=== PATIENT | female | born 1960 | race African-American/Black ===

== ENCOUNTER 2023-06-13 17:32 | Emergency (ER) | payer SELFPAY ==
--- OUTSIDE RECORDS SUMMARY | 2023-06-13 17:38 | XMS REPORT | Continuity of Care Document ---
:1960 Author Organization [facility] t Address [address] [place] [address] Care Team Providers Name Role Phone PCP, PATIENT DOES NOT HAVE A Primary Care Physician Unavaila ble CATRACHITA FERGUSON Attending Clinician Unavailable Catrachita Ferguson MD Attending Clinician MIGUEL BABIN Attending Clinician Unavailable STELLA PEDRAZA Attending Clinician Unavailable Stella Pedraza DO Attending Clinician CRISELDA KHAN Attending Clinician Unavailable MIGUEL A SIMPSON Attending Clinician Unavailable JC BRANDON Attending Clinician Unavailable SATHISH ARGUELLES Attending Clinician Unavailable NICHOLE GONCALVES Attending Clinician Unavailable COCO SHERMAN Attending Clinician Unavailable MAGALY AGUIAR Attending Clinician Unavailable AMADA SALDAÑA Attending Clinician Unavailable JAIMEE VALERO Attending Clinician Unavailable CONCEPCIÓN MARINO Attending Clinician Unavailable CARLITA BARBOSA Attending Clinician Unavailable Jinny Lund Attending Clinician MATI DE LEON Attending Clinician Unavailable Yang Henderson Attending Clinician Unavailable CATRACHITA FERGUSON Admitting Clinician Unavailable STELLA PEDRAZA Admitting Clinician Unavailable Physician, No Primary or Family Admitting Clinician Unavaila benjamin Payers Payer Name Policy Type Policy Number Effective Date Expiration Date Penelope bowens [facility] [id number] [id number] 2022 ASSISTANCE PROGRAM 00:00:00 00:00:00 [facility] SELECT OUT [id number] 2022 OF NETWORK 00:00:00 FORMERLY [facility] [id number] 2022 2078 CHOICE MARK[employer] 00:00:00 00:00:00 CHANTE GEORGE [id number] 1555-04-25 2022 PLANNING SELF 00:00:00 00:00:00 Problems Condition Condition Condition Status Onset Resolution Last Treating Co mments Source Name Details Category Date Date Treatment Clinician Date CP CP Active Diagnosis Active 2021-10-26 Memoria 10/19/202110-19 07:38:00 l MH 15:00: Roberto [facility] 00 History of Past Illness Condition Condition Condition Status Onset Resolution Last Treating Co mments Source Name Details Category Date Date Treatment Clinician Date Palpitatio Palpitati Problem 2021-10-27 2021-10-27 Memoria ns ons 10-25 23:25:50 23:25:50 l 10/25/2021 21:25: Buster n 10/27/2021 00 [facility] Anxiety Anxiety Problem 2021-10-27 2021-10-27 Memoria disorder, disorder, 10-25 23:25:50 23:25:50 l unspecifie unspecifie 21:25: He rmann d d 00 10/25/2021 10/27/2021 [facility] Allergies, Adverse Reactions, Alerts Allergy Allergy Status Severity Reaction(s) Onset Inactive Treating Comm ents Source Name Type Date Date Clinician PENICILL DRUG Active Swelling Univer s IN INGREDI 11-23 ity of 00:00: [place] 00 Medical Branch Penicill Propensi Active Swelling Univ ers in ty to 11-23 ity of adverse 00:00: [place] reaction 00 Medical s Branch No Known DA Active U [facility] Allergie 10-20 [place] s 00:00: [facility] 00 are [facility] NO KNOWN Drug Active Univers ALLERGIE Class ity of S [facility] penicill penicill Active Memori a in in l Roberto Social History Social Habit Start Date Stop Date Quantity Comments Source Sexual orientation Univer sity of [facility] Exposure to 2023-01-10 2023-01-20 Not sure [facility] SARS-CoV-2 (event) 00:00:00 17:27:00 Medica l Branch Sex Assigned At [address] [facility] 00:00:00 [facility]00 [facility] Smoking Status Start Date Stop Date Source Tobacco smoking consumption [facility] Medical [facility] Branch Medications Ordered Filled Start Stop Current Ordering Indication Dosage Frequency Signature Comments Components Source Medication Medication Date Date Medication? Clinician (SIG) Name Name NaCl 0.9% 1000mL at 999 Uni vers (NS) bolus 4-02 04-02 mL/hr, ity of infusion 04:15: 04:40 1,000 mL, Shine as 1,000 mL 00 :00 IV Medical Infusion, Branch ONCE, 1 dose, On 11/23/22 at 2315, LISA Omnipaque No Notes: Memori a 350 3-03 (Same l injectable 20:38: as:Omnipaq H ermann solution 00 ue 350) WASTE: F/P - Black; E - Municipal Trash Bin Saline No Notes: Memoria Flush 0.9% -03 (Same as: l 19:03: BD Roberto 00 Posiflush) Immunizations Ordered Immunization Filled Immunization Date Status Commen ts Source Name Name Covid-19 Vaccine MRNA Unknown Completed [facility] (PF) 12[facility] (Pfizer/BioNTech)(IMM 601) Covid-19 Vaccine MRNA Unknown Completed [facility] (PF) 12yr+ [facility] (Pfizer/BioNTech)(IMM 601) Vital Signs Vital Name Observation Time Observation Value Comments Source Systolic blood 2023-05-20 01:51:18 143 mm[Hg] Univer sity of pressure [facility] Diastolic blood 2023-05-20 01:51:18 64 mm[Hg] Unive [facility] Heart rate 2023-05-20 01:51:18 58 /min [facility] Respiratory rate 2023-05-20 01:51:18 19 /min [facility] Oxygen saturation in 2023-05-20 01:51:18 99 /min [facility] Arterial blood by [facility] Pulse oximetry Branch Body temperature 2023-05-19 23:25:00 36.78 Letitia [facility] [place] [facility] Body height 2023-05-19 23:25:00 162.6 cm [facility] [place] [facility] Body weight 2023-05-19 23:25:00 70.761 kg [facility] [place] [facility] BMI 2023-05-19 23:25:00 26.78 kg/m2 [facility] [place] [facility] Systolic blood 2023-01-20 22:29:00 130 mm[Hg] [facility] [place] [facility] Diastolic blood 2023-01-20 22:29:00 77 mm[Hg] Unive [facility] [place] [facility] Heart rate 2023-01-20 22:29:00 69 /min [facility] [place] [facility] Body temperature 2023-01-20 22:29:00 37.5 Letitia [facility] [place] [facility] Respiratory rate 2023-01-20 22:29:00 16 /min [facility] [place] [facility] Body height 2023-01-20 22:29:00 162.6 cm [facility] [place] [facility] Body weight 2023-01-20 22:29:00 73.029 kg [facility] [place] [facility] BMI 2023-01-20 22:29:00 27.64 kg/m2 Universi ty of [facility] Branch Oxygen saturation in 2023-01-20 22:29:00 99 /min University of Arterial blood by [facility] Pulse oximetry Branch Systolic blood 2022-11-24 04:00:00 138 mm[Hg] [facility] [place] [facility] Diastolic blood 2022-11-24 04:00:00 74 mm[Hg] Unive [facility] [place] [facility] Respiratory rate 2022-11-24 04:00:00 9 /min [facility] [place] [facility] Heart rate 2022-11-24 03:09:00 71 /min [facility] [place] [facility] Body temperature 2022-11-24 03:09:00 37.11 Letitia [facility] [place] [facility] Body height 2022-11-24 03:09:00 162.6 cm [facility] [place] [facility] Body weight 2022-11-24 03:09:00 72.576 kg [facility] [place] [facility] BMI 2022-11-24 03:09:00 27.46 [facility] in 2022-11-24 03:09:00 100 /min University Arterial blood by [facility] Pulse oximetry Branch Temperature Oral (F) 2021-10-25 21:53:00 98.2 F [facility] Respitory Rate 2021-10-25 21:53:00 Memori al Roberto Systolic (mm Hg) 2021-10-25 21:53:00 Aron rial Roberto Diastolic (mm Hg) 2021-10-25 21:53:00 Mem orial Roberto BMI Calculated 2021-10-25 21:30:00 Memori al Roberto Respitory Rate 2021-10-25 19:30:00 [facility] [place] Systolic (mm Hg) 2021-10-25 19:30:00 [facility]ron [facility] [place] Diastolic (mm Hg) 2021-10-25 19:30:00 Mem orial Roberto Respitory Rate 2021-10-25 19:00:00 [facility] [place] Systolic (mm Hg) 2021-10-25 19:00:00 Aron rial Roberto Diastolic (mm Hg) 2021-10-25 19:00:00 [facility] [place] Height 2021-10-25 18:29:00 162.56 cm [facility] [place] [facility] BMI Calculated 2021-10-25 18:29:00 [facility] [place] Weight 2021-10-25 18:29:00 [facility] [place] [facility] Heart Rate 2021-10-25 18:29:00 [facility] Oral (F) 2021-10-25 18:29:00 98.3 F [facility] [place] [facility] Procedures Procedure Date / Time Performing Clinician Source Performed XR CHEST 1 VW 2023-05-20 00:35:27 Catrachita Ferguson Pompey o f [facility] CONSENT/REFUSAL FOR 2023-05-19 23:17:29 Doctor Unassigned, No [facility] [place] [facility] Name [facility] Branch CONSENT/REFUSAL FOR 2023-01-20 22:18:32 Doctor Unassigned, No [facility] [place] [facility] Name [facility] EKG-12 LEAD 2022-11-24 04:43:27 Stella Pedraza [facility] XR CHEST 1 VW 2022-11-24 03:47:31 Stella Pedraza [facility] MAGNESIUM 2022-11-24 03:30:00 Stella Pedraza [facility] TROPONIN I 2022-11-24 03:30:00 Stella Pedraza [facility] THYROID STIMULATING 2022-11-24 03:30:00 Stella Pedraza [facility] HORMONE [facility] COMP. METABOLIC PANEL 2022-11-24 03:30:00 Stella Pedraza [facility] ([id number]) [facility] CBC WITH DIFF 2022-11-24 03:30:00 Stella Pedraza [facility] NOTICE OF PRIVACY 2022-11-24 02:59:10 Doctor Unassigned, No [facility] PRACTICES Name [facility] CONSENT/REFUSAL FOR 2022-11-24 02:58:42 Doctor Unassigned, No [facility] Name [facility] Plan of Care Planned Activity Planned Date Details Comments Source Future Scheduled 2023-04-25 Influenza Vaccine (#1) [facility] 00:[facility]00 [code = Influenza Vaccine De dical Center (#1)] Future Scheduled 2022-08-[address] [facility] Test 00:00:00 (12+) [code = DEPRESSION Med [facility] Center SCREENING (12+)] Future Scheduled 2021-02-05 COVID-19 VACCINE (3 - [facility] 00:[facility]:00 Booster for Pfizer Medical C enter series) [code = COVID-19 VACCINE (3 - Booster for Pfizer series)] Future Scheduled 2010 SHINGLES VACCINES ([address] [facility] Test 00:00:00 2) [code = SHINGLES Medical Center VACCINES (1 of 2)] Future Scheduled 2005 Lipid panel (procedure) [facility] Test 00:00:00 [code = 96912011] Medical Ce nter Future Scheduled 1981 Screening for malignant [facility] Test 00:00:00 neoplasm of cervix Medical C enter (procedure) [code = 090567553] Future Scheduled 1979 DTAP/TDAP/TD VACCINES ([address] [facility] Test 00:00:00 - Tdap) [code = Medical Cent er DTAP/TDAP/TD VACCINES (1 - Tdap)] Future Scheduled 1978 HEPATITIS C SCREENING [facility] 00:00:00 [code = HEPATITIS C Medical Center SCREENING] Future Scheduled [address] [facility] Test 00:00:00 virus screening Medical Cent er (procedure) [code = 334193139] Future Scheduled [address] [facility] Test 00:00:00 Counseling and Screening [facility] (12+) [code = Tobacco Cessation Counseling and Screening (12+)] Future Scheduled 1960 Screening for malignant [facility] Test 00:00:00 neoplasm of breast Medical C enter (procedure) [code = 470181250] Future Scheduled 1960 CT Colonography (combo) [facility] Test 00:00:00 [code = CT Colonography [facility] (combo)] Future Scheduled 1960 Screening for malignant [facility] Test 00:00:00 neoplasm of colon Medical Ce nter (procedure) [code = 640035438] Future Scheduled 1960 Screening for malignant [facility] Test 00:00:00 neoplasm of colon Medical Ce nter (procedure) [code = 283179864] Future Scheduled 1960 Screening for malignant [facility] Test 00:00:00 neoplasm of colon Medical Ce nter (procedure) [code = 167442747] Future Scheduled 1960 Screening for malignant [facility] Test 00:00:00 neoplasm of colon Medical Ce nter (procedure) [code = 838714546] Future Scheduled 1960 Sigmoidoscopy [code = [facility] 00:[facility] Sigmoidoscopy] Medical Cente r Encounters Start End Encounter Admission Attending Care Care Encounter Source Date/Time Date/Time Type Type Clinicians Facility Department ID 2022-10-11 Outpatient [facility] [id number] [place] 20:59:03 [id number] [facility] 2022-02-13 Outpatient [facility] [id number] 06:03:54 [id number] [facility] 2023-05-19 2023-05-19 Emergency X JEROME, [facility] ERT [id number] Univers 18:27:00 20:54:00 CATRACHITA lo [facility] 2023-05-19 2023-05-19 Emergency [facility] [id number] Univers 18:27:00 20:54:00 Catrachita DAI [id number] i ty [facility] [id number] [facility] [id number] [address] 2023-01-29 2023-01-29 Outpatient OLAF, [facility] [id number] [place] 00:00:00 00:00:00 [facility] 2023-01-29 2023-01-29 Outpatient OLAF, [facility] [id number] [place] 00:00:00 00:00:00 [facility] 2023-01-20 2023-01-20 Emergency [facility] [id number] Univers 17:31:00 18:06:00 STELLA lo [facility] 2023-01-20 2023-01-20 Emergency [facility] [id number] Univers 17:31:00 18:06:00 Stella DAI [id number] ity [facility] [id number] [facility] [id number] [address] 2022-11-23 2022-11-23 Emergency X [facility] ERT [id number] Univers 22:02:00 23:48:00 STELLA leelizabet [facility] 2022-11-23 2022-11-23 Emergency [facility] [id number] Univers 22:02:00 23:48:00 Stella DAI [id number] ity [facility] [id number] [facility] [id number] [address] 2022-11-18 2022-11-18 Outpatient EKERUO, [facility] [id number] [place] 00:00:00 00:00:00 CRISELDA [employer] 2022-11-05 2022-11-05 Outpatient EKERUO, [facility] [id number] [place] 11:41:40 23:59:00 [facility] 2022-10-21 2022-10-21 Outpatient [facility] [id number] [place] 00:00:00 00:00:00 [facility] 2022-09-23 2022-09-23 Outpatient ERIN, [facility] [id number] [place] 14:25:07 15:59:20 [facility]22-09-19 2022-09-19 Outpatient SIMPSON, [facility] [id number] [place] 14:31:33 15:24:14 [facility] 2022-09-17 2022-09-17 [facility] [id number] [place] 00:00:00 00:00:00 [facility] 2022-08-20 2022-08-21 Emergency [facility] [id number] [place] 20:10:00 00:50:00 [facility] 2022-07-31 2022-07-31 Outpatient [facility] [id number] [place] 12:37:21 23:59:00 , [facility] 2022-07-31 2022-07-31 Outpatient [facility] [id number] [place] 12:37:07 23:59:00 , [facility] 2022-07-30 2022-07-30 [facility] [id number] [place] 10:22:52 10:28:12 [facility] 2022-07-30 2022-07-[address], [facility] [id number] [place] 00:00:00 00:00:00 [facility] 2022-07-23 2022-07-23 Outpatient OGADRIANA, [facility] [id number] [place] 10:06:25 10:13:04 [facility] 2022-07-23 2022-07-23 [facility] [id number] [place] 00:00:00 00:00:00 [facility] 2022-07-15 2022-07-15 Outpatient ROMA, [facility] [id number] [place] 08:35:11 09:10:54 [facility] 2022-07-15 2022-07-15 Outpatient [facility] [id number] [place] 00:00:00 00:00:00 [facility] 2022-07-01 2022-07-01 Outpatient MAGALY AGUIAR [facility] [id number] [place] 08:23:05 08:59:00 [facility] 2022-05-20 2022-05-20 [id number] [place] 10:22:59 11:09:15 , [facility] 2022-05-06 2022-05-06 Outpatient MAGALY AGUIAR [facility] [id number] [place] 08:29:38 09:12:50 [facility] 2022-04-30 2022-05-01 Emergency [facility] [id number] [place] 21:10:00 01:27:00 [facility] 2022-04-24 2022-04-24 [facility] [id number] [place] 08:13:24 23:59:00 , [facility] 2022-03-25 2022-03-25 [facility] [id number] [place] 10:02:02 10:41:30 , [facility] 2022-03-05 2022-03-05 Outpatient MAGALY AGUIAR [facility] [id number] [place] 08:34:29 08:53:15 [facility] 2022-02-26 2022-02-26 Outpatient MAGALY AGUIAR [facility] [id number] [place] 00:00:00 00:00:00 [facility] 2022-01-28 2022-01-28 [facility] [id number] [place] 13:49:44 14:22:57 , [facility] 2022-01-28 2022-01-28 [facility] [id number] [place] 00:00:00 00:00:00 , [facility] 2022-01-24 2022-01-24 [facility] [id number] [place] 13:39:58 23:59:00 , [facility] 2022-01-24 2022-01-24 [facility] [id number] [place] 13:37:11 13:38:00 , [facility] 2022-01-24 2022-01-24 [facility] [id number] [place] 13:35:33 13:36:00 , [facility] 2022-01-22 2022-01-22 [facility] [id number] [place] 09:23:42 23:59:00 , [facility] 2022-01-22 2022-01-22 Outpatient NHONTCHIT [facility] [id number] [place] 00:00:00 00:00:00 [facility]22-[facility] 2022-01-09 [facility] [id number] [place] 00:00:00 00:00:00 , [facility] 2021-12-27 2021-12-27 [facility] [id number] [place] 14:00:05 23:59:00 , [facility] 2021-12-27 2021-12-27 Outpatient OMARJuliana MAGALY [facility] [id number] [place] 08:34:25 09:13:49 [facility] 2021-11-27 2021-11-27 [facility] [id number] [place] 14:58:56 15:31:13 , [facility] 2021-11-22 2021-11-22 Outpatient [facility] [id number] [place] 09:24:52 09:26:31 [facility] 2021-11-20 2021-11-20 Emergency [facility] [id number] [place] 17:59:00 22:30:00 [facility] 2021-11-19 2021-11-20 Emergency [facility] [id number] [place] 22:54:00 11:32:00 [facility] 2021-11-19 2021-11-19 Emergency [facility] [id number] [place] 13:51:00 15:30:00 [facility] 2021-11-19 2021-11-19 Emergency [facility] [id number] [place] 12:24:25 12:28:11 [facility] 2021-11-16 2021-11-16 [facility] [id number] [place] 14:56:05 15:38:20 , [facility] 2021-11-16 2021-11-16 [facility] [id number] [place] 14:34:43 14:47:12 , [facility] 2021-11-16 2021-11-16 [facility] [id number] [place] 13:54:45 14:28:17 , [facility] 2021-11-16 2021-11-16 Outpatient NHONTHACHIT [facility] [id number] [place] 00:00:00 00:00:00 , [facility] 2021-11-08 2021-11-08 Emergency [facility] [id number] [place] 08:18:00 17:13:00 [facility] 2021-11-08 2021-11-08 Emergency [facility] [id number] [place] 08:27:00 08:27:00 [facility] 2021-11-08 2021-11-08 Emergency 1 [facility] [id number] [place] 08:18:00 08:18:00 [facility] 2021-10-27 2021-10-27 Outpatient CHELSEY, [facility] [id number] [place] 16:47:16 19:24:32 [facility] 2021-10-27 2021-10-27 Emergency [facility] [id number] [place] 13:25:00 14:00:00 [facility] 2021-10-25 2021-10-25 Emergency [facility] [id number] Memoria 18:28:27 21:57:00 [facility] 2021-10-25 2021-10-25 Outpatient Lund, [place] [id number] 12:28:27 15:57:00 Jinny Ryan Campos Dhaliwal 2021-10-20 2021-10-20 Emergency [facility] [id number] [place] 17:55:00 21:18:00 [facility] 2021-10-20 2021-10-20 Emergency [facility] [id number] [place] 19:20:00 19:42:50 [facility] 2021-10-20 2021-10-20 Emergency EM Beatriz, RADHA [facility] [id number] [facility] 01:13:00 05:47:00 Yang Schumacher [facility] 2020-12-11 2020-12-11 Outpatient [facility] [id number] [facility] 00:00:00 00:00:00 2020-11-20 2020-11-20 Outpatient [facility] [id number] [facility] 00:00:00 00:00:00 Results Test Description Test Time Test Comments Results Result Comments Source THYROID STIMULATING HORMONE 2022-11-24 04:38:41 Test Item Value Reference Range Interpretation Comme nts TSH (test code = 9462370381) 1.19 See_Comment [Automated message] The system which generated this result transmitted ref erence range: 0.45 - 4.70 mIU/L. T he reference range was not used to interpret this result as pamela l/abnormal. Lab Interpretation (test code = Normal 04016-4) [id number]:20[facility]01 Test Item Value Reference Range Interpretation Comments TROPONIN I (test code = 0.000 ng/mL <=0.034 0788417434) SYLVIA (test code = SYLVIA) Reference (Normal) Range (defined by the 99th percentile reference limit): <= 0.034 ng/mL Note: Cardiac troponin begins to rise 3-4 hours after the onset of ischemia. Repeat in 4-6 hours if the sample was drawn within 3-4 hours of the onset of the symptom and found normal. Diagnosis of myocardial injury is made with acute changes in cTn concentrations with at least one serial sample above the 99th percentile upper reference limit (URL), taken together with the patient's clinical presentation. Biotin has been reported to cause a negative bias, interpret results relative to patient's use of biotin. Lab Interpretation Normal (test code = 64002-4) [facility] 04:08:19 Test Item Value Reference Range Interpretation Comments MAGNESIUM (test code = 2934780757) 2.1 mg/dL 1.7-2.4 Lab Interpretation (test code = Normal 34316-7) [facility] (25319)2022-11-24 04:08:18 Test Item Value Reference Range Interpretation Comments NA (test code = 138 mmol/L 135-145 9636601629) K (test code = 4.5 mmol/L 3.5-5.0 0347862812) CL (test code = 105 mmol/L 98-108 1886095928) CO2 TOTAL (test code 24 mmol/L 23-31 = 8579882670) AGAP (test code = 9 2-16 5866187969) BUN (test code = 13 mg/dL 7-23 5736023369) GLUCOSE (test code = 101 mg/dL 70-110 8834283211) CREATININE (test code 0.69 mg/dL 0.50-1.04 = 9712867424) TOTAL BILI (test code 0.6 mg/dL 0.1-1.1 = 4852539924) CALCIUM (test code = 9.6 mg/dL 8.6-10.6 8408133515) T PROTEIN (test code 7.4 g/dL 6.3-8.2 = 1586035417) ALBUMIN (test code = 4.1 g/dL 3.5-5.0 2590367752) ALK PHOS (test code = 69 U/L 34-122 5153566123) ALTv (test code = 15 U/L 5-35 2-6) AST(SGOT) (test code 24 U/L 13-40 = 9682512445) eGFR (test code = 86.2 mL/min/1.73m2 3419317152) SYLVIA (test code = SYLVIA) Association of Glomerular Filtration Rate (GFR) and Staging of Kidney Disease* + + +- +| GFR (mL/min/1.73 m2) ?| With Kidney Damage ?| ?Without Kidney Damage+ ------+ ----+ ------+| ?>90 ?| ?Stage one ?| ? Normal ?+ -+ + -+| ?60-89 ?| ?Stage two ?| ? Decreased GFR ? + + +- +| ?30-59 ?| ?Stage three ?| ? Stage three ? + + +- +| ?15-29 ?| ?Stage four ? | ? Stage four ?+ -+ + -+| ?<15 (or dialysis) ? ?| ?Stage five ? | ? Stage five ?+ -+ + -+ *Each stage assumes the associated GFR level has been in effect for at least three months. ?Stages 1 to 5, with or without kidney disease, indicate chronic kidney disease. Notes: Determination of stages one and two (with eGFR >59mL/min/1.73 m2) requires estimation of kidney damage for at least three months as defined by structural or functional abnormalities of the kidney, manifested by either:Pathological abnormalities or Markers of kidney damage (including abnormalities in the composition of the blood or urine or abnormalities in imaging tests). [facility] WITH [id number] 03:55:20 Test Item Value Reference Range Interpretation Comments WBC (test code = 8.20 See_Comment [Automated 6690-2) message] The sy stem which generated this result transmitted reference range : 4.30 - 11.10 10*3/?L. The reference range was not used to interpret this result as normal/abnormal . RBC (test code = 4.83 See_Comment [Automated 789-8) message] The sy stem which generated this result transmitted reference range : 3.93 - 5.25 10*6/?L. The reference range was not used to interpret this result as normal/abnormal . HGB (test code = 12.5 g/dL 11.6-15.0 718-7) HCT (test code = 40.8 % 35.7-45.2 4544-3) MCV (test code = 84.5 fL 80.6-95.5 787-2) MCH (test code = 25.9 pg 25.9-32.8 785-6) MCHC (test code = 30.6 g/dL 31.6-35.1 L 786-4) RDW-SD (test code = 45.1 fL 39.0-49.9 28233-4) RDW-CV (test code = 14.9 % 12.0-15.5 788-0) PLT (test code = 487 See_Comment H [Automated 777-3) message] The sy stem which generated this result transmitted reference range : 166 - 358 10*3/ ?L. The reference r gadiel was not used to interpret this result as normal/abnormal . MPV (test code = 11.4 fL 9.5-12.9 91878-2) NRBC/100 WBC (test 0.0 See_Comment [Automat ed code = [id number]) message] The system which generated this result transmitted reference range : 0.0 - 10.0 /100 WBCs. The refer ence range was not u sed to interpret th is result as normal/abnormal . NRBC x10^3 (test code See_Comment [Auto mated = [id number]) message] The s ystem which generated this result transmitted reference range : 10*3/?L. The reference range was not used to interpret this result as normal/abnormal . GRAN MAT (NEUT) % 51.1 % (test code = 770-8) IMM GRAN % (test code 0.10 % = 6179556870) LYMPH % (test code = 40.4 % 736-9) MONO % (test code = 5.7 % 5905-5) EOS % (test code = 1.8 % 713-8) BASO % (test code = 0.9 % 706-2) GRAN MAT x10^3(ANC) 4.19 10*3/uL 1.88-7.09 (test code = 7552661484) IMM GRAN x10^3 (test 0.00-0.06 code = 9304813540) LYMPH x10^3 (test code 3.31 10*3/uL 1.32-3.29 H = 731-0) MONO x10^3 (test code 0.47 10*3/uL 0.33-0.92 = 742-7) EOS x10^3 (test code = 0.15 10*3/uL 0.03-0.39 711-2) BASO x10^3 (test code 0.07 10*3/uL 0.01-0.07 = 704-7) Lab Interpretation Abnormal (test code = 57356-0) [facility] 1+2 Ab+HIV1 p24 Ag SerPl Ql [id number] 09:42:22 Test Item Value Reference Range Interpretation Comments HIV 1+2 Ab+HIV1 p24 Ag SerPl Ql IA NEGATIVE Negative (test code = 34556-9) HHSCARDIAC [id number] 20:30:00 Test Item Value Reference Range Interpretation Comments HS Troponin I (test code = HS Troponin 3 I) [facility] [id number] 20:13:00 Test Item Value Reference Range Interpretation Comments UA Turbidity (test code = Clear (10/25/21 2:13 UA Turbidity) PM) [facility] [id number] 20:13:00 Test Item Value Reference Range Interpretation Comments UA Spec Grav (test code = UA Spec 1.006 1 Grav) [facility] [id number] 20:13:00 Test Item Value Reference Range Interpretation Comments UA pH (test code = UA pH) 7.0 1 5.0-8.0 [facility] AND [id number] 20:13:00 Test Item Value Reference Range Interpretation Comments UA Protein (test code = UA Negative mg/dL Protein) [facility] AND [id number] 20:13:00 Test Item Value Reference Range Interpretation Comments UA Glucose (test code = UA Glucose) 50 mg/dL [facility] AND [id number] 20:13:00 Test Item Value Reference Range Interpretation Comments UA Ketones (test code = UA Trace mg/dL Ketones) [facility] AND [id number] 20:13:00 Test Item Value Reference Range Interpretation Comments UA Bili (test code = Negative *NA*(10/25/21 UA Bili) 2:13 PM) [facility] AND [id number] 20:13:00 Test Item Value Reference Range Interpretation Comments UA Blood (test code = Negative (10/25/21 2:13 UA Blood) PM) [facility] AND [id number] 20:13:00 Test Item Value Reference Range Interpretation Comments UA Nitrite (test code Negative (10/25/21 2:13 = UA Nitrite) PM) [facility] AND [id number] 20:13:00 Test Item Value Reference Range Interpretation Comments UA Leuk Est (test Negative (10/25/21 2:13 code = UA Leuk Est) PM) [facility] AND [id number] 20:13:00 Test Item Value Reference Range Interpretation Comments UA Sq Epi (test code = UA Sq Occasional /LPF Epi) [facility] AND [id number] 20:13:00 Test Item Value Reference Range Interpretation Comments UA WBC (test code = UA WBC) 1 <=5 [facility] AND [id number] 20:13:00 Test Item Value Reference Range Interpretation Comments UA RBC (test code = UA RBC) no gt <=2 [facility] AND [id number] 20:13:00 Test Item Value Reference Range Interpretation Comments UA Bacteria (test code = UA Occasional /HPF Bacteria) [facility] AND [id number] 20:13:00 Test Item Value Reference Range Interpretation Comments UA Color (test code = UA Color) STRAW [facility] AND [id number] 20:13:00 Test Item Value Reference Range Interpretation Comments UA Urobilinogen (test code = UA <=1.0 mg/dL 0.1-1.0 Urobilinogen) [facility] [id number] 19:15:00 Test Item Value Reference Range Interpretation Comments Total CK (test code = Total CK) 105 12-191 [facility] [id number] 19:15:00 Test Item Value Reference Range Interpretation Comments HS Troponin I (test code = HS Troponin 4 I[id number]:15:00 Test Item Value Reference Range Interpretation Comments BNP (test code = BNP) 14 [facility] [id number] 19:15:00 Test Item Value Reference Range Interpretation Comments Glucose Lvl (test code = Glucose Lvl) 191 70-99 [facility] [id number] 19:15:00 Test Item Value Reference Range Interpretation Comments BUN (test code = BUN) 7 7-22 [facility] [id number] 19:15:00 Test Item Value Reference Range Interpretation Comments Creatinine Lvl (test code = Creatinine 1.11 0.50-1.40 Lvl) [facility] [id number] 19:15:00 Test Item Value Reference Range Interpretation Comments Sodium Lvl (test code = Sodium Lvl) 137 135-145 [facility]2022-03-03 19:15:00 Test Item Value Reference Range Interpretation Comments Potassium Lvl (test code = Potassium 3.5 3.5-5.1 Lvl) [facility] [id number] 19:15:00 Test Item Value Reference Range Interpretation Comments Chloride Lvl (test code = Chloride Lvl) 106 95-109 [facility]2022-03-03 19:15:00 Test Item Value Reference Range Interpretation Comments CO2 (test code = CO2) 21 24-32 [facility]2022-03-03 19:15:00 Test Item Value Reference Range Interpretation Comments Calcium Lvl (test code = Calcium Lvl) 9.6 8.5-10.5 [facility]2022-03-03 19:15:00 Test Item Value Reference Range Interpretation Comments Total Protein (test code = Total 8.0 6.4-8.4 Protein) [facility]2022-03-03 19:15:00 Test Item Value Reference Range Interpretation Comments Albumin Lvl (test code = Albumin Lvl) 3.5 3.5-5.0 [facility]2022-03-03 19:15:00 Test Item Value Reference Range Interpretation Comments ALT (test code = ALT) 15 <=65 [facility]2022-03-03 19:15:00 Test Item Value Reference Range Interpretation Comments AST (test code = AST) 18 <=37 [place] [id number] 19:15:00 Test Item Value Reference Range Interpretation Comments Alk Phos (test code = Alk Phos) 71 39-136 [facility]2022-03-03 19:15:00 Test Item Value Reference Range Interpretation Comments Bili Total (test code = Bili Total) 0.6 0.2-1.3 [place] 135652-03-03 19:15:00 Test Item Value Reference Range Interpretation Comments AGAP (test code = AGAP) 13.5 10.0-20.0 [facility]2022-03-03 19:15:00 Test Item Value Reference Range Interpretation Comments B/C Ratio (test code = B/C Ratio) 6 1 6-25 [place] 135652-03-03 19:15:00 Test Item Value Reference Range Interpretation Comments Globulin (test code = Globulin) 4.5 2.7-4.2 [facility]2022-03-03 19:15:00 Test Item Value Reference Range Interpretation Comments A/G Ratio (test code = A/G Ratio) 0.8 1 0.7-1.6 [place] 135652-03-03 19:15:00 Test Item Value Reference Range Interpretation Comments eGFR (test code = eGFR) 54 [facility]2022-03-03 19:15:00 Test Item Value Reference Range Interpretation Comments Lipase Lvl (test code = Lipase Lvl) 281 73-393 [id number] 19:15:00 Test Item Value Reference Range Interpretation Comments WBC (test code = WBC) 7.4 3.7-10.4 [facility] CenterFaeecpvGUMPGJUNBB2349-84-15 19:15:00 Test Item Value Reference Range Interpretation Comments RBC (test code = RBC) 5.13 4.20-5.40 [facility] C[id number] 19:15:00 Test Item Value Reference Range Interpretation Comments Hgb (test code = Hgb) 13.3 12.0-16.0 [facility] [id number] 19:15:00 Test Item Value Reference Range Interpretation Comments Hct (test code = Hct) 40.1 36.0-48.0 [facility] C[id number] 19:15:00 Test Item Value Reference Range Interpretation Comments MCV (test code = MCV) 78.1 80.0-98.0 [facility] Cent[id number] 19:15:00 Test Item Value Reference Range Interpretation Comments MCH (test code = MCH) 26.0 pg 27.0-31.0 [facility] CenterLrdharpEWAIBTYJXR9308-59-20 19:15:00 Test Item Value Reference Range Interpretation Comments MCHC (test code = MCHC) 33.3 32.0-36.0 [facility] CenterQoyycvlHQAZBQSQMH1424-51-46 19:15:00 Test Item Value Reference Range Interpretation Comments RDW (test code = RDW) 14.9 11.5-14.5 [facility] Cent[id number] 19:15:00 Test Item Value Reference Range Interpretation Comments Platelet (test code = Platelet) 562 133-450 [facility] CenterJblmczsOWEGRWPNYE0939-25-21 19:15:00 Test Item Value Reference Range Interpretation Comments MPV (test code = MPV) 8.1 7.4-10.4 [facility] Cent[id number] 19:15:00 Test Item Value Reference Range Interpretation Comments PT (test code = PT) 13.7 s 12.0-14.7 [facility] CenterQhmjvalQRMFBCBTHT9426-87-54 19:15:00 Test Item Value Reference Range Interpretation Comments INR (test code = INR) 1.06 1 0.85-1.17 [facility] CenterJsmygfiQAKYFYZVGJ7459-76-17 19:15:00 Test Item Value Reference Range Interpretation Comments PTT (test code = PTT) 23.0 s 22.9-35.8 [facility] CenterWhjtmlyPRFPOAKFVZ5905-89-99 19:15:00 Test Item Value Reference Range Interpretation Comments D-Dimer (test code = D-Dimer) 0.32 [facility] CenterXnracywVRWYBTWZPU6535-93-85 19:15:00 Test Item Value Reference Range Interpretation Comments Segs (test code = Segs) 79.5 45.0-75.0 [facility] CenterPejoxatTCDGGYXRZZ5041-51-84 19:15:00 Test Item Value Reference Range Interpretation Comments Lymphocytes (test code = Lymphocytes) 14.1 20.0-40.0 [facility] C[id number] 19:15:00 Test Item Value Reference Range Interpretation Comments Monocytes (test code = Monocytes) 5.1 2.0-12.0 [facility] CenterYeomxsiFCBKXYYLQW2110-96-72 19:15:00 Test Item Value Reference Range Interpretation Comments Eosinophils (test code = Eosinophils) 0.6 <=4.0 [facility] [id number] 19:15:00 Test Item Value Reference Range Interpretation Comments Basophils (test code = Basophils) 0.7 <=1.0 [facility] CenterTpeslfnYHRYFMJDPF7256-37-21 19:15:00 Test Item Value Reference Range Interpretation Comments Neutrophils # (test code = Neutrophils 5.9 1.5-8.1 #) [facility] CenterTicfsfcZQQYWPDZZL3288-45-04 19:15:00 Test Item Value Reference Range Interpretation Comments Lymphocytes # (test code = Lymphocytes 1.0 1.0-5.5 #) [facility] CenterUzmvuwyKDUQHQCYSJ9571-36-27 19:15:00 Test Item Value Reference Range Interpretation Comments Monocytes # (test code = Monocytes #) 0.4 <=0.8 [facility] CenterVshsqngCFJFVADOOO3033-26-49 19:15:00 Test Item Value Reference Range Interpretation Comments Microcyte (test code = 1+ *ABN*(10/25/21 1:15 Microcyte) PM) [facility] NorthwestTsjkxemGHWUZIQB-I0815-30-26 05:14:00 Test Item Value Reference Range Interpretation Comments TROPONIN-I (test code = TROPI) <0.020 ng/mL 0.000-0.034 N DRUGS OF ABUSE SCREEN [id number] 04:09:00 Test Item Value Reference Range Interpretation Comments UR COCAINE (test code NEGATIVE NEGATIVE This i s a toxicology = COCAU) qualitative scr eening test only, whic hmay detect parent c ompound or metabolite or relatedsubstanc e. If confirmatory te sting is desired, please request drug screen con firmation. These results a re unconfirmed and should be used only for m edical purposes. Cut-o ff concentration f or Cocaine is 300 ng/mLRec ommended screening cut-o ff concentrations by theRusttance Ab use and Mental [facility] ervices Administration. UR CANABINOIDS (test NEGATIVE NEGATIVE This is a toxicology code = CANU) qualitative scr eening test only which may detect parent compound or metabolite or relatedsubstanc e. If confirmatory te sting is desired, please request drug screen con firmation. These results areunconfirmed and should be used only fo r medical purposes. Cut-o ff concentration f or THC is 50 ng/mLRecomme nded screening cut-o ff concentrations by thebstance Ab use and [facility]. UR AMPHETAMINE (test NEGATIVE NEGATIVE The ing estion of natural code = AMPHU) herbal and ben nt productscontain ing Ephedra/Ephedra -Metabolit es can produce in urineone or mor e substances capa ble of cross-reacting withAmphetamine /Methamphe tamine immunoas says. This testprovides a preliminary res ult only. A more specificalterna tive chemical method must be used to obtain aconfirmed analytical resu lt. This is a toxicology qualitative scr eening test only which may detect parent compund or metabolite or relatedsubstanc e. If confirmatory te sting is desired, please request drug screen con firmation. These results areunconfirmed and should be used only fo r medical purposes. Cut-o ff concentration f or Amphetamines is 1000 ng/mLRecommende d screening cut-o ff concentrations by thebstance Ab use and Mental [facility] ervices Administration. UR BARBITURATE (test NEGATIVE NEGATIVE This is a toxicology code = BARBQLU) qualitative screening test only which may detect parent compund or metabolite or relatedsubstanc e. If confirmatory te sting is desired, please request drug screen con firmation. These results areunconfirmed and should be used only fo r medical purposes. Cut-o ff concentration f or Barbiturates is 200 ng/mLRecommende d screening cut-o ff concentrations by [facility] Ab use [facility]. UR BENZODIAZEPINE NEGATIVE NEGATIVE This is a toxicology (test code = BENZU) qualitat delmy screening test only which may detect parent compound or metabolite or relatedsubstanc e. If confirmatory te sting is desired, please request drug screen con firmation. These results areunconfirmed and should be used only fo r medical purposes. Cut-o ff concentration f or Benzodiazepines is 200 ng/mLRecommende d screening cut-o ff concentrations by [facility] Ab use and [facility]. UR OPIATES QUAL (test NEGATIVE NEGATIVE This i s a toxicology code = OPIAQLU) qualitative screening test only which may detect parent compound or metabolite or relatedsubstanc e. If confirmatory te sting is desired, please request drug screen con firmation. These results areunconfirmed and should be used only fo r medical purposes. Cut-o ff concentration f or Opiates is 300 ng/mLRec ommended screening cut-o ff concentrations by [facility] use [facility]. UR PHENCYCLIDINE NEGATIVE NEGATIVE This is a t oxicology (PCP) (test code = qualitati ve screening PHENCU) test only which may detect parent compund or metabolite or relatedsubstanc e. If confirmatory te sting is desired, please request drug screen con firmation. These results areunconfirmed and should be used only fo r medical purposes. Cut-o ff concentration f or PCP is 25 ng/mLRecomme nded screening cut-o ff concentrations by [facility] use [facility]. URINALYSIS [id number] 04:00:00 Test Item Value Reference Range Interpretation Comments UA COLOR (test code = YELLOW YELLOW COLU) UA APPEARANCE (test Clear CLEAR code = APPU) UA GLUCOSE DIPSTICK NEGATIVE NEGATIVE (test code = DGLUU) UA BILIRUBIN DIPSTICK NEGATIVE NEGATIVE (test code = BILU) UA KETONE DIPSTICK Trace NEGATIVE A (test code = KETU) UA SPECIFIC GRAVITY 1.026 1.001-1.030 (test code = SGU) UA BLOOD DIPSTICK NEGATIVE NEGATIVE (test code = ADDISON) UA PH DIPSTICK (test 6.0 5.0-9.0 code = SHAUN) UA PROTEIN DIPSTICK NEGATIVE NEGATIVE (test code = PROU) UA UROBILINOGEN 2.0 See_Comment A [Automated message] DIPSTICK (test code = The sy stem which URO) generated this result transmitted ref erence range: <=1.0. T he reference range was not used to interpr et this result as normal/abnormal . UA NITRITE DIPSTICK NEGATIVE NEGATIVE (test code = ENZO) UA ASCORBIC ACID POSITIVE A High levels of ascorbic DIPSTICK (test code = acid m ay cause false AAU) negativeresults for blood, glucose & nitrite. UA LEUKOCYTE ESTERASE NEGATIVE NEGATIVE DIPSTICK (test code = LEUU) UA WBC (test code = 0-5 /HPF 0-5 WBCU) UA RBC (test code = 0-5 /HPF 0-5 RBCU) UA EPITHELIAL CELLS RARE /LPF NONE-FEW (test code = EPIU) UA BACTERIA (test None /HPF NONE SEEN code = BACU) UA MUCUS (test code = 1+ /LPF NONE SEEN MUCU) - XR CHEST 1 [id number] 03:54:00 [facility] 1960 Sex: FPatient Name: NATI OLMEDO Unit No: [id number] EXAMS: CPT: [id number] XR CHEST 1 V 27917 CHEST 1 VIEW CLINICAL HISTORY: Palpitations COMPARISON: None. A single frontal view of the chest is submitted. FINDINGS: The cardiac silhouette is normal in size. Vascularity appears normal. The lungs are clear. No pleural effusion or pneumothorax is seen. No osseous abnormalities are seen. IMPRESSION: Negative chest radiograph. at 0354 Reported and signedby: Ortiz Brooke MD CC: Yang Henderson MD Technologist: Flavio Moraes Time: DAP (Gy m2): Air Kerma (mGy): Trscr Dt/Tm: 10/20/2021 (035) by:[email or web address] Orig Print D/T: S: 10/20/2021 (0357) BATCH NO: N/A Name: NATI OLMEDO [facility] ED Phys: Yang Hubbard MD [address] : 1960 Age: 61 Sex: F [place], [place] [address] Loc: N.ERS Exam Date: 10/20/2021 Status: REG ER PH: FAX: PAGE 1 Signed ReportCOMPREHENSIVE METABOLIC [id number] 02:54:00 Test Item Value Reference Range Interpretation Comments SODIUM (test code = 139 mmol/L 135-145 N NA) POTASSIUM (test 3.8 mmol/L 3.6-5.0 N code = K) CHLORIDE (test code 102 mmol/L 101-111 N = CL) CARBON DIOXIDE 26 mmol/L 21-31 N (test code = CO2) GLUCOSE (test code 134 mg/dl 70-100 H = GLU) BLOOD UREA NITROGEN 9 mg/dl 6-20 N (test code = BUN) GLOMERULAR >=60 max >60 The estimated FILTRATION RATE estimate glomerular (test code = GFR) filtration rate is computed usingpatient ra ce, age (>18), sex, and serum creatinin e. If anyof the ne eded data elements a re missing the Laboratory eduardo ot compute an estimation of t he glomerular filtration rate . CREATININE (test 0.87 mg/dL 0.44-1.03 N code = CREAT) TOTAL PROTEIN (test 8.0 g/dL 6.7-8.2 N code = PROT) ALBUMIN (test code 3.8 g/dL 3.2-5.5 N = ALB) CALCIUM (test code 9.4 mg/dL 8.5-10.5 N = CA) BILIRUBIN TOTAL 0.40 mg/dL 0.2-1.3 N (test code = BILT) SGOT/AST (test code 25 U/L 10-42 N = AST) SGPT/ALT (test code 14 U/L 10-60 N = ALT) ALKALINE 67 U/L 42-121 N PHOSPHATASE (test code = ALKP) [id number] 02:50:00 Test Item Value Reference Range Interpretation Comments TROPONIN-I (test code = TROPI) <0.020 ng/mL 0.000-0.034 N CBC W/AUTO [id number] 02:34:00 Test Item Value Reference Range Interpretation Comments WHITE BLOOD CELL (test code = 9.6 x10 3/uL 3.2-11.5 N WBC) RED BLOOD CELL (test code = 4.94 x10(6)/m 3.70-5.10 N RBC) HEMOGLOBIN (test code = HGB) 12.7 g/dL 12.0-15.0 N HEMATOCRIT (test code = HCT) 40.7 % 35.7-44.8 N MEAN CELL VOLUME (test code = 82 fL 80-100 N MCV) MEAN CELL HGB (test code = MCH) 25.7 pg 26.2-33.8 L MEAN CELL HGB CONCENTRATION 31.2 g/dL 30.0-34.0 N (test code = MCHC) RED CELL DISTRIBUTION WIDTH 14.6 % 11.3-14.5 H (test code = RDW) PLATELET COUNT (test code = 565 x10 3/uL 130-408 H PLT) MEAN PLATELET VOLUME (test code 9.8 fL 8.6-12.6 N = MPV) NEUTROPHIL % (test code = NT%) 68.1 % 40.0-70.0 N IMMATURE GRANULOCYTE % (test 0.2 % 0.0-2.0 N code = IG%) LYMPHOCYTE % (test code = LY%) 23.5 % 20-40 N MONOCYTE % (test code = MO%) 6.1 % 1-10 N EOSINOPHIL % (test code = EO%) 1.5 % 0.0-5.0 N BASOPHIL % (test code = BA%) 0.6 % 0.0-1.0 N NUCLEATED RBC % (test code = 0.0 % 0.0-0.9 N NRBC%) NEUTROPHIL # (test code = NT#) 6.5 x10 3/uL 1.6-7.2 N LYMPHOCYTE # (test code = LY#) 2.25 x10 3/uL 1.1-2.7 N MONOCYTE # (test code = MO#) 0.6 x10 3/uL 0.3-0.8 N EOSINOPHIL # (test code = EO#) 0.1 x10 3/uL 0.0-0.5 N BASOPHIL # (test code = BA#) 0.1 x10 3/uL 0.0-0.1 N"
--- NOTE | 2023-06-13 18:26 | RAD REPORT ---
EXAM DESCRIPTION: RAD - Chest Pa And Lat (2 Views) - 06/13/2023 6:02 pm CLINICAL HISTORY: collar bone pain COMPARISON: No comparisons TECHNIQUE: PA and lateral views of the chest were obtained. FINDINGS: The lungs are clear. Heart size is normal and central vasculature is within normal limits. No pleural effusion or pneumothorax seen. No acute bony finding noted. IMPRESSION: No acute cardiopulmonary process.
--- NOTE | 2023-06-13 18:56 | RAD REPORT ---
EXAM DESCRIPTION: - CP - 06/13/2023 6:26 pm CLINICAL HISTORY: right neck "fatigue" COMPARISON: No comparisons TECHNIQUE: Real-time sonographic grayscale, color duplex, and spectral wave Doppler evaluation of [facility] carotid systems was performed. FINDINGS: Normal high resistance waveforms are noted in both external carotid arteries. The common c arotid arteries and internal carotid arteries show normal low resistance waveforms. No significant plaque formation is seen. Peak systolic velocity less than 125 cm/ sec bilaterally. I CA/CCA peak systolic ratios less than 2.0 bilaterally. Antegrade flow seen in both vertebral arteries. IMPRESSION: No significant atherosclerotic changes noted. No evidence of a hemodynamically significant stenosis. Evaluation of carotid artery stenosis, if any, is reported based on consensus recommendations of the Society of Radiologists in Ultrasound (Shiva et al., Radiology, 2003)
--- NOTE | 2023-06-13 19:13 | ER ---
Nurse's Notes [facility] Name: Rebecca Pineda Age: 62 yrs Sex: Female : 1960 Arrival Date: 06/13/2023 Time: 17:32 Bed 11 Private MD: Diagnosis: Localized swelling, mass and lump, neck-not able to palpate Presentation: 06/13 17:42 Chief complaint: Patient states: "2 weeks ago, I woke up to my right collar bone mb9 sunken. It feels tired and a lot of tension. I can move it and everything.". Coronavirus screen: Vaccine status: Patient reports receiving the 2nd dose of the covid vaccine. Ebola Screen: No symptoms or risks identified at this time. Initial Sepsis Screen: Does the patient meet any 2 criteria? No. Patient's initial sepsis screen is negative. Does the patient have a suspected source of infection? No. Patient's initial sepsis screen is negative. Risk Assessment: Do you want to hurt yourself or someone else? Patient reports no desire to harm self or others. Onset of symptoms was June 13, 2023. 17:42 Method Of Arrival: Ambulatory mb9 17:42 Acuity: PADMAJA 4 mb9 Triage Assessment: 17:45 General: Appears in no apparent distress. Behavior is calm, cooperative. Pain: Denies mb9 pain. EENT: No signs and/or symptoms were reported regarding the EENT system. Neuro: Lockhart Agitation-Sedation Scale (RASS): 0 - Alert and Calm Level of Consciousness is awake, alert, obeys commands, Oriented to person, place, time, situation, Appropriate for age. Cardiovascular: Patient's skin is warm and dry. Respiratory: Airway is patent Respiratory effort is even, unlabored, Respiratory pattern is regular, symmetrical. GI: No signs and/or symptoms were reported involving the gastrointestinal system. : No signs and/or symptoms were reported regarding the genitourinary system. Derm: Skin is pink, warm \\T\\ dry. Musculoskeletal: Range of motion: intact in all extremities. Historical: - Allergies: 17:43 PENICILLINS; mb9 - Home Meds: 17:43 None [Active]; mb9 - PMHx: 17:43 None; mb9 - PSHx: 17:43 Tonsillectomy; mb9 - Immunization history:: Adult Immunizations up to date. - Social history:: Smoking status: Patient denies any tobacco usage or history of. Screenin:30 [facility] ED Fall Risk Assessment (Adult) History of falling in the last 3 months, mb9 including since admission No falls in past 3 months (0 pts) Confusion or Disorientation No (0 pts) Intoxicated or Sedated No (0 pts) Impaired Gait No (0 pts) Mobility Assist Device Used No (0 pt) Altered Elimination No (0 pt) Score/Fall Risk Level 0 - 2 = Low Risk Oriented to surroundings, Maintained a safe environment, Educated pt \\T\\ family on fall prevention, incl call for assistance when getting out of bed. Abuse screen: Denies threats or abuse. Nutritional screening: No deficits noted. Tuberculosis screening: No symptoms or risk factors identified. Assessment: 18:30 Reassessment: No changes from previously documented assessment. Patient and/or family mb9 updated on plan of care and expected duration. Pain level reassessed. Patient is alert, oriented x 3, equal unlabored respirations, skin warm/dry/pink. 19:12 Reassessment: No changes from previously documented assessment. Patient is alert, km8 oriented x 3, equal unlabored respirations, skin warm/dry/pink. received report from Yuliya Iglesias RN. Neuro: Level of Consciousness is awake, alert, obeys commands, Oriented to person, place, time, situation. Cardiovascular: Capillary refill < 3 seconds Patient's skin is warm and dry. Respiratory: Airway is patent Respiratory effort is even, unlabored, Respiratory pattern is regular, symmetrical. Vital Signs: 17:42 BP 136 / 87; Pulse 81; Resp 16; Temp 97.8; Pulse Ox 100% on R/A; Weight 70.31 kg; mb9 Height 5 ft. 4 in. ; 17:42 Body Mass Index 26.61 (70.31 kg, 162.56 cm) mb9 ED Course: 17:36 Patient arrived in ED. ts1 17:38 [facility]C [facility] snw 17:38 Geronimo Ramirez MD is Attending Physician. snw 17:43 Triage completed. mb9 17:45 Arm band placed on. mb9 17:59 Chest Pa And Lat (2 Views) XRAY In Process Unspecified. EDMS 18:27 US Carotid Artery Bilateral In Process Unspecified. EDMS 18:29 Yuliya Ferrell, RN is Primary Nurse. mb9 18:30 Placed in gown. Bed in low position. Call light in reach. Side rails up X 1. Client mb9 placed on continuous cardiac and pulse oximetry monitoring. NIBP monitoring applied. 18:30 No provider procedures requiring assistance completed. mb9 19:49 Patient did not have IV access during this emergency room visit. km8 Administered Medications: No medications were administered Medication: 18:30 VIS not applicable for this client. mb9 Outcome: 19:13 Discharge ordered by . cruz 19:48 Discharged to home ambulatory, km8 19:48 Condition: good 19:48 Discharge instructions given to patient, Instructed on discharge instructions, follow up and referral plans. medication usage, Demonstrated understanding of instructions, follow-up care, medications, Prescriptions given X 1, 19:49 Patient left the ED. km8 Signatures: Dispatcher [employer] EDRI Evelyne Reyes, FOREIGN AGENT-C FOREIGN AGENT-Csnw Yuliya Ferrell, RN RN mb9 Zelda Marc PAS PAS ts1 Ngozi Reese RN RN km8
--- NOTE | 2023-06-13 19:14 | EDPHYS ---
Physician Documentation [facility] Name: Rebecca Pineda Age: 62 yrs Sex: Female : 1960 Arrival Date: 06/13/2023 Time: 17:32 Bed 11 Private MD: ED Physician Geronimo Ramirez HPI: 06/13 18:55 This 62 yrs old Black Female presents to ER via Ambulatory with complaints of Shoulder snw Injury. 18:55 The patient or guardian complains of pt states right supraclavicular area appears snw sunken. Historical: - Allergies: 17:43 PENICILLINS; mb9 - Home Meds: 17:43 None [Active]; mb9 - PMHx: 17:43 None; mb9 - PSHx: 17:43 Tonsillectomy; mb9 - Immunization history:: Adult Immunizations up to date. - Social history:: Smoking status: Patient denies any tobacco usage or history of. ROS: 18:50 Constitutional: Negative for fever, chills, and weight loss, Eyes: Negative for injury, snw pain, redness, and discharge, ENT: Negative for injury, pain, and discharge, Cardiovascular: Negative for chest pain, palpitations, and edema, Respiratory: Negative for shortness of breath, cough, wheezing, and pleuritic chest pain, Abdomen/GI: Negative for abdominal pain, nausea, vomiting, diarrhea, and constipation, Back: Negative for injury and pain, : Negative for injury, bleeding, discharge, and swelling, MS/Extremity: Negative for injury and deformity, Skin: Negative for injury, rash, and discoloration, Neuro: Negative for headache, weakness, numbness, tingling, and seizure, Psych: Negative for depression, anxiety, suicide ideation, homicidal ideation, and hallucinations, 18:50 Neck: Positive for pt states right lateral neck, supraclavicular area with "tiredness" and Pt states "sunken", Exam: 18:47 Constitutional: This is a well developed, well nourished patient who is awake, alert, snw and in no acute distress. Head/Face: Normocephalic, atraumatic. Eyes: Pupils equal round and reactive to light, extra-ocular motions intact. Lids and lashes normal. Conjunctiva and sclera are non-icteric and not injected. Cornea within normal limits. Periorbital areas with no swelling, redness, or edema. ENT: Nares patent. No nasal discharge, no septal abnormalities noted. Tympanic membranes are normal and external auditory canals are clear. Oropharynx with no redness, swelling, or masses, exudates, or evidence of obstruction, uvula midline. Mucous membranes moist. Neck: Trachea midline, no thyromegaly or masses palpated, and no cervical lymphadenopathy. Supple, full range of motion without nuchal rigidity, or vertebral point tenderness. No Meningismus. pt concerned right fat pad is lower than left Chest/axilla: Normal chest wall appearance and motion. Nontender with no deformity. No lesions are appreciated. Cardiovascular: Regular rate and rhythm with a normal S1 and S2. No gallops, murmurs, or rubs. Normal PMI, no JVD. No pulse deficits. Respiratory: Lungs have equal breath sounds bilaterally, clear to auscultation and percussion. No rales, rhonchi or wheezes noted. No increased work of breathing, no retractions or nasal flaring. Abdomen/GI: Soft, non-tender, with normal bowel sounds. No distension or tympany. No guarding or rebound. No evidence of tenderness throughout. Back: No spinal tenderness. No costovertebral tenderness. Full range of motion. Skin: Warm, dry with normal turgor. Normal color with no rashes, no lesions, and no evidence of cellulitis. MS/ Extremity: Pulses equal, no cyanosis. Neurovascular intact. Full, normal range of motion. Neuro: Awake and alert, GCS 15, oriented to person, place, time, and situation. Cranial nerves II-XII grossly intact. Motor strength 5/5 in all extremities. Sensory grossly intact. Cerebellar exam normal. Normal gait. Psych: Awake, alert, with orientation to person, place and time. Behavior, mood, and affect are within normal limits. Vital Signs: 17:42 BP 136 / 87; Pulse 81; Resp 16; Temp 97.8; Pulse Ox 100% on R/A; Weight 70.31 kg; mb9 Height 5 ft. 4 in. ; 17:42 Body Mass Index 26.61 (70.31 kg, 162.56 cm) 9 MDM: 17:46 Patient medically screened. snw 18:54 Differential diagnosis: torticollis, fat pad elevation of left. Data reviewed: vital snw signs, nurses notes, radiologic studies. Counseling: I had a detailed discussion with the patient and/or guardian regarding the historical points, exam findings, and any diagnostic results supporting the discharge/admit diagnosis, the presence of at least one elevated blood pressure reading (>120/80) during this emergency department visit, radiology results, the need for outpatient follow up, for definitive care. Special discussion: Based on the history and exam findings, there is no indication for further emergent testing or inpatient evaluation. I discussed with the patient/guardian the need to see the primary care provider for further evaluation of the symptoms. 19:14 ED course: encouraged pt to get Mammogram as pt notes something different at [facility] supraclavicular area, states she gets Mammograms at [facility]. They have been following Q6mo. Last Mammogram in January. 06/13 17:46 Order name: Chest Pa And Lat (2 Views) XRAY; Complete Time: 18:46 snw 06/13 17:50 Order name: US Carotid Artery Bilateral; Complete Time: 19:04 snw Administered Medications: No medications were administered Disposition: 20:48 Co-signature as Attending Physician, Geronimo Ramirez MD I reviewed the patient's care rt provided by the Advanced Practice Provider and agree with the diagnosis and treatment plan. Disposition Summary: 06/13/23 19:13 Discharge Ordered Notes: Location: Home snw Condition: Stable snw Diagnosis - Localized swelling, mass and lump, neck - not able to palpate snw Followup: snw - With: Emergency Department - When: As needed - Reason: Worsening of condition Followup: snw - With: Private Physician - When: 2 - 3 days - Reason: Recheck today's complaints, Continuance of care, Re-evaluation by your physician Discharge Instructions: - Discharge Summary Sheet snw - Cervical Radiculopathy snw - Mammogram snw - Cervical Sprain snw Forms: - Medication Reconciliation Form snw - Thank You Letter snw - Antibiotic Education snw - Prescription Opioid Use snw - Patient Portal Instructions snw - Leadership Thank You Letter snw Prescriptions: - orphenadrine citrate 100 mg Oral Tablet Sustained Release - take 1 tablet ORAL route 2 times per day As needed; 20 tablet; Refills: 0, snw Product Selection Permitted Signatures: Dispatcher [employer] Evelyne Campos, HORTICULTURAL SERVICES SUPERVISOR-C HORTICULTURAL SERVICES SUPERVISOR-Csnw Yuliya Ferrell, RN RN mb9 Geronimo Ramirez MD MD rt
[2023-06-13 20:38] VITALS: BP 136/87; TEMP 97.8; O2SAT 100
== END 2023-06-13 19:49 | disposition home or self-care (01) ==
LOC: ER 17:32
DX: R22.1 Localized swelling, mass and lump, neck (principal)
CPT/HCPCS: 71046; 93880; 99283

== ENCOUNTER → 2023-11-11 | Emergency (ER) | payer OTHER, SELFPAY ==
[2023-11-11 13:35] LABS: Absolute Eosinophils 0.1 K/uL (0-0.5); Absolute Monocytes 0.4 K/uL (0.1-1.3); Absolute Neutrophil 3.8 K/uL (1.8-8.0); Basophils % 0.5 % (0-1.3); Hematocrit 42.2 % (36.0-45.0); Hemoglobin 13.6 g/dL (12.0-15.0); Lymphocytes % 18.5 % (15.3-44.8); MCHC 32.3 g/dL (32.0-36.0); MCV 80.4 fL (80-100); MPV 8.1 fL (7.6-11.3); Monocytes % 7.1 % (3.3-12.3); Neutrophils % 72.9 % (41.7-73.7); Nucleated Red Blood Cells % 0.2 % (0-0); Platelets 468 thou/uL (152-406); RBC Red Blood Cell Count 5.25 M/uL (3.86-4.86)
--- NOTE | 2023-11-11 13:37 | RAD REPORT ---
EXAM DESCRIPTION: RAD - Chest Single View - 11/11/2023 1:16 pm CLINICAL HISTORY: PALPITATIONS Chest pain. COMPARISON: <Comparisons> FINDINGS: Portable technique limits examination quality. The lungs are grossly clear. The heart is normal in size. No displaced fractures. IMPRESSION: No acute intrathoracic process suspected.
[2023-11-11 14:03] LABS: Anion Gap 8.4 mEq/L (5.0-15.0); Potassium 3.4 mEq/L (3.5-5.1); Troponin High Sensitivity 3.1 pg/mL (<58.9)
--- NOTE | 2023-11-11 15:55 | ER ---
Nurse's Notes [facility] Name: Rebecca Pineda Age: 63 yrs Sex: Female : 1960 Arrival Date: 11/11/2023 Time: 12:00 Bed 20 Private MD: Diagnosis: Palpitations Presentation: 11/10 12:05 Chief complaint: Patient states: her blood pressure was high at home and she was having ap3 heart palpitations. patient also reports feeling a burning/icy feeling in her heart during this time as well. patient states this has happened in the past. Coronavirus screen: At this time, the client does not indicate any symptoms associated with coronavirus-19. Ebola Screen: No symptoms or risks identified at this time. Initial Sepsis Screen: Does the patient meet any 2 criteria? HR > 90 bpm. Does the patient have a suspected source of infection? No. Patient's initial sepsis screen is negative. Risk Assessment: Do you want to hurt yourself or someone else? Patient reports no desire to harm self or others. Onset of symptoms is unknown. 12:05 Method Of Arrival: Ambulatory ap3 12:05 Acuity: PADMAJA 2 ap3 Triage Assessment: 12:08 General: Appears in no apparent distress. Behavior is cooperative, appropriate for age, ap3 anxious. Pain: Complains of pain in "heart" Quality of pain is described as burning, icy. Neuro: Level of Consciousness is awake, alert, obeys commands, Oriented to person, place, time, situation, Appropriate for age. Cardiovascular: Patient's skin is warm and dry. Respiratory: Airway is patent Respiratory effort is even, unlabored, Respiratory pattern is regular, symmetrical. Historical: - Allergies: 12:07 PENICILLINS; ap3 - Home Meds: 12:07 Vitamin D Oral [Active]; Iron CR Oral [Active]; ap3 - PMHx: 12:07 None; ap3 - PSHx: 12:07 Tonsillectomy; ap3 - Immunization history:: Client reports receiving the 2nd dose of the Covid vaccine, Flu vaccine is not up to date. - Social history:: Smoking status: Patient denies any tobacco usage or history of. Screenin:09 Abuse screen: Denies threats or abuse. Nutritional screening: No deficits noted. ap3 Tuberculosis screening: No symptoms or risk factors identified. 13:50 [facility] ED Fall Risk Assessment (Adult) History of falling in the last 3 months, nj1 including since admission No falls in past 3 months (0 pts) Confusion or Disorientation No (0 pts) Intoxicated or Sedated No (0 pts) Impaired Gait No (0 pts) Mobility Assist Device Used No (0 pt) Altered Elimination No (0 pt) Score/Fall Risk Level 0 - 2 = Low Risk Oriented to surroundings, Maintained a safe environment, Hourly rounding (assess needs \\T\\ fall precautionary measures) done. Assessment: 13:00 General: Appears in no apparent distress. comfortable, Behavior is calm, cooperative, nj1 appropriate for age. 13:00 Pain: Denies pain. Neuro: Level of Consciousness is awake, alert, obeys commands, nj1 Oriented to person, place, time, situation. Cardiovascular: Denies chest pain, palpitations, Patient's skin is warm and dry. Cardiovascular: Rhythm is regular. Respiratory: Airway is patent Respiratory effort is even, unlabored. 14:00 Reassessment: Patient appears in no apparent distress at this time. Patient and/or nj1 family updated on plan of care and expected duration. Pain level reassessed. Patient is alert, oriented x 3, equal unlabored respirations, skin warm/dry/pink. 16:30 Reassessment: Patient appears in no apparent distress at this time. Patient is alert, nj1 oriented x 3, equal unlabored respirations, skin warm/dry/pink. Patient denies pain at this time. Patient states symptoms have improved. Vital Signs: 12:05 BP 173 / 97; Pulse 98; Resp 17; Temp 98.2; Pulse Ox 100% ; Weight 72.57 kg; Height 5 ap3 ft. 4 in. ; 13:37 BP 127 / 65; Pulse 63; Resp 12; Pulse Ox 100% ; nj1 15:53 BP 135 / 68; Pulse 62; Resp 18; Pulse Ox 100% on R/A; nj1 16:30 BP 132 / 60; Pulse 65; Resp 18; Pulse Ox 100% on R/A; nj1 12:05 Body Mass Index 27.46 (72.57 kg, 162.56 cm) ap3 ED Course: 12:01 Patient arrived in ED. rg4 12:02 Junior Berrios MD is Attending Physician. ec2 12:07 Triage completed. ap3 12:09 Arm band placed on left wrist. ap3 13:00 Patient has correct armband on for positive identification. Bed in low position. Call nj1 light in reach. Adult w/ patient. Provided Education on: call light, fall precautions. 13:00 Placed in gown. Client placed on continuous cardiac and pulse oximetry monitoring. NIBP nj1 monitoring applied. telemetry monitor on. 13:00 Inserted saline lock: 22 gauge in left antecubital area, using aseptic technique. nj1 ,using aseptic technique. Established by Stepan Matson. Blood collected. 13:36 Jenifer Vela, RN is Primary Nurse. nj1 15:55 RAD In Process Unspecified. EDMS 16:30 No provider procedures requiring assistance completed. IV discontinued, intact, nj1 bleeding controlled, Pressure dressing applied. Administered Medications: No medications were administered Medication: 16:39 VIS not applicable for this client. nj1 Outcome: 14:54 Discharge ordered by . ec2 16:30 Discharged to home ambulatory, nj1 16:30 Condition: stable 16:30 Discharge instructions given to patient, Instructed on discharge instructions, follow up and referral plans. Demonstrated understanding of instructions, follow-up care, 16:39 Patient left the ED. nj1 Signatures: Dispatcher [employer] Aletha Curtis rg4 Norma Burgos RN RN ap3 Jenifer Vela, RN RN nj1 Junior Berrios MD MD ec2 Corrections: (The following items were deleted from the chart) 13:51 13:37 Pulse 63bpm; Resp 12bpm; Pulse Ox 100%; nj1 nj1
--- NOTE | 2023-11-11 15:56 | EDPHYS ---
Physician Documentation [facility] Name: Rebecca Pineda Age: 63 yrs Sex: Female : 1960 Arrival Date: 11/11/2023 Time: 12:00 Bed 20 Private MD: ED Physician Junior Berrios HPI: 11/10 12:18 This 63 yrs old Black Female presents to ER via Ambulatory with complaints of High ec2 Blood Pressure, Palpitations. 12:18 Patient arrives today for evaluation of palpitations. Reports episodic palpitations ec2 over the past 2 years, states that this all started 10/19/2021. Reports no active symptoms, no n/v/d, no active cp, sob, abd pain, n/v. she reports that she checked her bp at home and noted it to be elevated which is what prompted evaluation. . Historical: - Allergies: 12:07 PENICILLINS; ap3 - Home Meds: 12:07 Vitamin D Oral [Active]; Iron CR Oral [Active]; ap3 - PMHx: 12:07 None; ap3 - PSHx: 12:07 Tonsillectomy; ap3 - Immunization history:: Client reports receiving the 2nd dose of the Covid vaccine, Flu vaccine is not up to date. - Social history:: Smoking status: Patient denies any tobacco usage or history of. ROS: 12:18 Constitutional: as per hpi ec2 Exam: 12:18 Constitutional: Gen: well appearing, no acute distress. Cards: normal rate, pulm: no ec2 resp distress. Vital Signs: 12:05 BP 173 / 97; Pulse 98; Resp 17; Temp 98.2; Pulse Ox 100% ; Weight 72.57 kg; Height 5 ap3 ft. 4 in. ; 13:37 BP 127 / 65; Pulse 63; Resp 12; Pulse Ox 100% ; nj1 15:53 BP 135 / 68; Pulse 62; Resp 18; Pulse Ox 100% on R/A; nj1 16:30 BP 132 / 60; Pulse 65; Resp 18; Pulse Ox 100% on R/A; nj1 12:05 Body Mass Index 27.46 (72.57 kg, 162.56 cm) ap3 MDM: 12:17 Patient medically screened. ec2 12:18 Data reviewed: vital signs. ED course: arrives today for elevated blood pressure, and ec2 palpitations. exam reassuring. will obtain labs to evaluate for organ dysfunction. considering acs, renal dysfunction, electrolyte disturbances. . 14:30 ED course: Metabolic profile shows slight hypokalemia, appropriate renal function. ec2 Troponin within normal ranges. . 14:51 ED course: CBC is reassuring. On reassessment patient is well-appearing no acute ec2 distress. Will discharge home. Return precautions given.. 14:52 ED course: Chest x-ray shows no acute intrathoracic process.. ec2 11/10 12:18 Order name: Basic Metabolic Panel ec2 11/10 12:18 Order name: CBC with Diff ec2 11/10 12:18 Order name: Troponin HS ec2 11/10 12:18 Order name: XRAY Chest (1 view) ec2 11/10 15:54 Order name: RAD EDMS 11/10 12:18 Order name: EKG; Complete Time: 12:19 ec2 11/10 12:18 Order name: Cardiac monitoring; Complete Time: 13:37 ec2 11/10 12:18 Order name: EKG - Nurse/Tech; Complete Time: 13:37 ec2 11/10 12:18 Order name: IV Saline Lock; Complete Time: 13:37 ec2 11/10 12:18 Order name: Labs collected and sent; Complete Time: 13:37 ec2 11/10 12:18 Order name: O2 Per Protocol; Complete Time: 13:37 ec2 11/10 12:18 Order name: O2 Sat Monitoring; Complete Time: 13:37 ec2 Administered Medications: No medications were administered Disposition Summary: 11/11/23 14:54 Discharge Ordered Notes: Location: Home ec2 Problem: an ongoing problem ec2 Symptoms: are unchanged ec2 Condition: Stable ec2 Diagnosis - Palpitations ec2 Followup: ec2 - With: Private Physician - When: - Reason: Re-evaluation by your physician Discharge Instructions: - Discharge Summary Sheet ec2 - Palpitations ec2 Forms: - Medication Reconciliation Form ec2 - Thank You Letter ec2 - Antibiotic Education ec2 - Prescription Opioid Use ec2 - Patient Portal Instructions ec2 - Leadership Thank You Letter ec2 Signatures: Dispatcher [employer] Norma Triplett RN RN ap3 Junior Berrios MD MD ec2 Corrections: (The following items were deleted from the chart) 12:21 12:18 Patient arrives today for evaluation of palpitations. Reports episodic ec2 palpitations over the past 2 years, states that this all started 10/19/2021. Reports no active symptoms, no n/v/d, no active cp, sob, abd pain, n/v. . ec2
[2023-11-11 18:36] VITALS: BP 132/60; TEMP 98.2; O2SAT 100
== END ==
LOC: ER 12:00
DX: R00.2 Palpitations (principal); Z88.0 Allergy status to penicillin
CPT/HCPCS: 36415; 71045; 80048; 84484; 85025; 93005

== ENCOUNTER 2024-03-26 03:34 | Emergency (ER) | payer OTHER ==
[2024-03-26] MEDS ORDERED: ONDANSETRON 4 MG/2 ML VIAL ONE (04:21)
[2024-03-26 04:33] LABS: Absolute Basophils 0.1 K/uL (0-0.5); Absolute Eosinophils 0.1 K/uL (0-0.5); Absolute Lymphocytes (CBC) 1.2 K/uL (0.7-4.9); Absolute Monocytes 0.3 K/uL (0.1-1.3); Absolute Neutrophil 4.2 K/uL (1.8-8.0); Basophils % 1.8 % (0-1.3); Eosinophils % 1.1 % (0-4.4); Hemoglobin 12.9 g/dL (12.0-15.0); Lymphocytes % 20.2 % (15.3-44.8); MCH 27.1 pg (27.0-35.0); MCHC 33.1 g/dL (32.0-36.0); MCV 81.9 fL (80-100); Monocytes % 5.4 % (3.3-12.3); Neutrophils % 71.5 % (41.7-73.7); Nucleated Red Blood Cells % 0.2 % (0-0); Platelets 494 thou/uL (152-406); RBC Red Blood Cell Count 4.77 M/uL (3.86-4.86); Red Cell Distribution Width 14.9 % (12.1-15.2)
[2024-03-26 04:41] LABS: Anion Gap 4.8 mEq/L (5.0-15.0); BUN Blood Urea Nitrogen 10 mg/dL (7-18); Bicarbonate 32 mEq/L (21-32); Glomerular Filtration Rate 84 ml/min (=/>90); Glucose Level 115 mg/dL (74-106); Potassium 3.8 mEq/L (3.5-5.1); Sodium Level 138 mEq/L (136-145); Troponin High Sensitivity 4.1 pg/mL (<58.9)
[2024-03-26 05:25] LABS: ALT/SGPT 16 U/L (13-56); AST/SGOT 16 U/L (15-37); Albumin 3.4 g/dL (3.4-5.0); Albumin/Globulin Ratio 0.8 (1.1-1.8); Alkaline Phosphatase 63 U/L (45-117); Bilirubin Total 0.5 mg/dL (0.2-1.0); Globulin 4.2 g/dL (2.3-3.5); Lipase 92 U/L (13-75); Protein, Total 7.6 g/dL (6.4-8.2); Thyroid Stimulating Hormone 0.933 uIU/mL (0.358-3.740)
[2024-03-26 05:30] LABS: Bilirubin Direct < 0.2 mg/dL (0-0.2); Bilirubin Indirect, Calculated 0.3 mg/dL (0.2-0.8); C-Reactive Protein < 2.90 mg/L (<3.00)
--- NOTE | 2024-03-26 11:30 | EDPHYS ---
Physician Documentation [facility] Name: Rebecca Pineda Age: 63 yrs Sex: Female : 1960 Arrival Date: 03/26/2024 Time: 03:34 Bed 5 Private MD: ED Physician Renee Cosby HPI: 03/26 04:31 This 63 yrs old Black Female presents to ER via Ambulatory with complaints of Chest sp4 Tightness, High Blood Pressure, Epigastric Pain. 05:03 PVCs 63-year-old female who presents with acute onset of chest tightness starting at 2 sp4 AM associated with elevated blood pressure 184/87 . Patient reported palpitations with heart rate of 120. Patient states she was prescribed propranolol 10 mg p.o. as needed for elevated blood pressure and she took her propranolol 10 mg p.o. prior to arrival. Patient has appointment scheduled with Dr. Shine on Friday03/29/2024 for evaluation for Stress Test NST in the office. . Historical: - Allergies: 04:09 PENICILLINS; vc1 - PMHx: 04:09 None; vc1 - PSHx: 04:09 Tonsillectomy; vc1 - Immunization history:: Client reports receiving the 2nd dose of the Covid vaccine. - Infectious Disease History:: Denies. - Social history:: Smoking status: Patient denies any tobacco usage or history of. - Family history:: not pertinent. ROS: 05:06 Constitutional: Negative for fever, chills, and weight loss, Eyes: Negative for injury, sp4 pain, redness, and discharge, ENT: Negative for injury, pain, and discharge, Cardiovascular: Positive chest tightness, positive palpitations, positive elevated blood pressure 05:06 All other systems are negative, Exam: 05:06 Constitutional: This is a well developed, well nourished patient who is awake, alert, sp4 and in no acute distress. Head/Face: Normocephalic, atraumatic. Eyes: Pupils equal round and reactive to light, extra-ocular motions intact. Lids and lashes normal. Conjunctiva and sclera are not injected. Cornea within normal limits. Periorbital areas with no swelling, redness, or edema. ENT: Nares patent. No nasal discharge, no septal abnormalities noted. Tympanic membranes are normal and external auditory canals are clear. Oropharynx with no redness, swelling, or masses, exudates, or evidence of obstruction, uvula midline. Mucous membranes moist. Neck: Trachea midline, no thyromegaly or masses palpated, and no cervical lymphadenopathy. Supple, full range of motion without nuchal rigidity, or vertebral point tenderness. Chest/axilla: Normal chest wall appearance and motion. Nontender with no deformity. No lesions are appreciated. Cardiovascular: Regular rate and rhythm with a normal S1 and S2. No gallops, murmurs, or rubs. Normal PMI, no JVD. No pulse deficits. Respiratory: Lungs have equal breath sounds bilaterally, clear to auscultation and percussion. No rales, rhonchi or wheezes noted. No increased work of breathing, no retractions or nasal flaring. Abdomen/GI: Soft, with normal bowel sounds. No distension or tympany. No guarding or rebound. No evidence of tenderness throughout. Back: No spinal tenderness. No costovertebral tenderness. Skin: Warm, dry with normal turgor. Normal color with no rashes, no lesions, and no evidence of cellulitis. MS/ Extremity: Pulses equal, no cyanosis. Neurovascular intact. Full, normal range of motion. Neuro: Awake and alert, GCS 15, oriented to person, place, time, and situation. Cranial nerves II-XII grossly intact. Motor strength 5/5 in all extremities. Sensory grossly intact. Psych: Awake, alert, with orientation to person, place and time. Behavior, mood, and affect are within normal limits 05:06 ECG was reviewed by the Attending Physician. EKG at 0 355 sinus pericardia rate 55 otherwise normal Vital Signs: 03:58 BP 158 / 75; Pulse 62; Resp 20; Temp 97.3; Pulse Ox 100% ; Weight 72.12 kg; Height 5 vc1 ft. 4 in. ; 05:00 BP 144 / 69; Pulse 55; Resp 18; Pulse Ox 100% ; cp4 06:00 BP 132 / 62; Pulse 50; Resp 18; Pulse Ox 100% ; cp4 07:23 BP 131 / 65; Pulse 54; Resp 16; Pulse Ox 100% on R/A; iw 10:41 BP 128 / 54; Pulse 47; Resp 15; Pulse Ox 100% ; bp 03:58 Body Mass Index 27.29 (72.12 kg, 162.56 cm) vc1 [place] Coma Score: 05:06 Eye Response: spontaneous(4). Motor Response: obeys commands(6). Verbal Response: sp4 oriented(5). Total: 15. MDM: 04:47 Patient medically screened. sp4 05:06 Differential diagnosis: acute pericarditis, anxiety, chest wall pain, congestive heart sp4 failure costochondritis, esophagitis, gastritis. HEART Score: History: Slightly Suspicious (0), ECG: Normal (0), Age: > 45 and < 65 years (1), Risk Factors: 1 or 2 risk factors (1), Troponin: < or = 1 x Normal Limit (0), Total Score = 2. Data reviewed: vital signs, nurses notes. 07:05 ED course: EXAM DESCRIPTION: Chest Single View CLINICAL HISTORY: CHEST PAIN COMPARISON: sp4 None TECHNIQUE: Single AP view of the chest. FINDINGS: Lung volumes adequate. Cardiac silhouette is normal in size. Thoracic aortic atherosclerosis. No pneumothorax. No large pleural effusion. No focal consolidation. No acute bony finding. IMPRESSION: No acute cardiopulmonary findings. Electronically signed by: Aram Patel MD 03/26/2024 06:18 AM. 08:08 Transition of care: After a detail discussion of the patient's case, care is sp4 transferred to Renee Cosby MD. 11:27 ED course: Labs reviewed. Delta trop neg. Pt to be discharged home with plan for sd2 outpatient follow up. Verbalizes understanding of discharge plan and strict return precautions.. 03/26 03:55 Order name: Basic Metabolic Panel; Complete Time: 07:02 sp4 03/26 03:55 Order name: CBC with Diff; Complete Time: 05:06 sp4 03/26 03:55 Order name: Troponin HS; Complete Time: 07:02 sp4 03/26 05:02 Order name: Hemoglobin A1c sp4 03/26 05:04 Order name: Lipase sp4 03/26 05:08 Order name: Liver (Hepatic) Function; Complete Time: 07:02 EDMS 03/26 05:08 Order name: C-Reactive Protein; Complete Time: 07:02 EDMS 03/26 05:08 Order name: T4 Free; Complete Time: 07:02 EDMS 03/26 05:08 Order name: Lipase; Complete Time: 07:02 EDMS 03/26 05:08 Order name: Thyroid Stimulating Hormone; Complete Time: 07:02 [facility] 03/26 06:43 Order name: Troponin High Sensitivity; Complete Time: 11:22 4 03/26 03:55 Order name: XRAY Chest (1 view) [facility] 03/26 03:55 Order name: EKG; Complete Time: 03:56 4 03/26 03:55 Order name: Cardiac monitoring; Complete Time: 04:00 [facility] 03/26 03:55 Order name: EKG - Nurse/Tech; Complete Time: 04:00 [facility] 03/26 03:55 Order name: IV Saline Lock; Complete Time: 04:00 4 03/26 03:55 Order name: Labs collected and sent; Complete Time: 04:00 [facility] 03/26 03:55 Order name: O2 Per Protocol; Complete Time: 04:00 4 03/26 03:55 Order name: O2 Sat Monitoring; Complete Time: 04:00 sp4 EC:06 Rate is 55 beats/min. Rhythm is regular, Sinus bradycardia. QRS [place] is Normal. DE sp4 interval is normal. QRS interval is normal. QT interval is normal. No Q waves. T waves are Normal. No ST changes noted. Clinical impression: No evidence of ischemia. Interpreted by me. Reviewed by me. Administered Medications: 04:27 Not Given (Patient Refused): ondansetron 4 mg IVP once; over 2 minutes cp4 Disposition Summary: 03/26/24 11:29 Discharge Ordered Problem: new sd2 Symptoms: have improved sd2 Condition: Stable sd2 Diagnosis - Chest pain, unspecified sd2 - Epigastric pain sd2 - Essential (primary) hypertension sd2 Followup: sd2 - With: Private Physician - When: 2 - 3 days - Reason: Recheck today's complaints, Continuance of care, Re-evaluation by your physician Discharge Instructions: - Discharge Summary Sheet sd2 - Nonspecific Chest Pain, Adult sd2 - Hypertension, Adult sd2 Forms: - Medication Reconciliation Form sd2 - Antibiotic Education sd2 - Prescription Opioid Use sd2 - Patient Portal Instructions sd2 - Leadership Thank You Letter sd2 Signatures: [facility] Chloé Lockhart RN RN vc1 Renee Cosby MD MD sd2 Rigo Medina MD MD sp4 Kityt Pelletier cp4 Corrections: (The following items were deleted from the chart) 05:05 05:02 HEPATIC FUNCTION+C.LAB.BRZ ordered. EDMS EDMS 05:05 05:02 THYROID STIMULAT HORMONE+C.LAB.BRZ ordered. EDMS EDMS 05:05 05:02 T4 FREE+C.LAB.BRZ ordered. EDMS EDMS 05:05 05:02 C-REACTIVE PROTEIN+C.LAB.BRZ ordered. EDMS EDMS
--- NOTE | 2024-03-26 11:30 | ER ---
Nurse's Notes [facility] Name: Rebecca Pineda Age: 63 yrs Sex: Female : 1960 Arrival Date: 03/26/2024 Time: 03:34 Bed 5 Private MD: Diagnosis: Chest pain, unspecified;Epigastric pain;Essential (primary) hypertension Presentation: 03/26 03:58 Chief complaint: Patient states: Been having problems with my heart racing and vc1 palpitations. I have a nuclear stress test on Friday. Tonight I started having chest tightness three times. I am also having pain in my left lower back and I am nauseous. I also can feel my my heart beating in my stomach. Coronavirus screen: Client denies travel out of the [place] in the last 14 days. At this time, the client does not indicate any symptoms associated with coronavirus-19. Ebola Screen: Patient negative for fever greater than or equal to 101.5 degrees Fahrenheit, and additional compatible Ebola Virus Disease symptoms Patient denies exposure to infectious person. Patient denies travel to an Ebola-affected area in the 21 days before illness onset. No symptoms or risks identified at this time. Initial Sepsis Screen: Does the patient meet any 2 criteria? No. Patient's initial sepsis screen is negative. Does the patient have a suspected source of infection? No. Patient's initial sepsis screen is negative. Risk Assessment: Do you want to hurt yourself or someone else? Patient reports no desire to harm self or others. Onset of symptoms was March 26, 2024. Care prior to arrival: Medication(s) given: propranolol. Activity prior to arrival: None. Mechanism of Injury: No Mechanism of Injury. Transition of care: patient was not received from another setting of care. 03:58 Method Of Arrival: Ambulatory vc1 03:58 Acuity: PADMAJA 3 vc1 Historical: - Allergies: 04:09 PENICILLINS; vc1 - PMHx: 04:09 None; vc1 - PSHx: 04:09 Tonsillectomy; vc1 - Immunization history:: Client reports receiving the 2nd dose of the Covid vaccine. - Infectious Disease History:: Denies. - Social history:: Smoking status: Patient denies any tobacco usage or history of. - Family history:: not pertinent. Screenin:11 [facility] ED Fall Risk Assessment (Adult) History of falling in the last 3 months, vc1 including since admission No falls in past 3 months (0 pts) Confusion or Disorientation No (0 pts) Intoxicated or Sedated No (0 pts) Impaired Gait No (0 pts) Mobility Assist Device Used No (0 pt) Altered Elimination No (0 pt) Score/Fall Risk Level 0 - 2 = Low Risk Oriented to surroundings, Maintained a safe environment, Educated pt \T\ family on fall prevention, incl call for assistance when getting out of bed. Abuse screen: Denies threats or abuse. Nutritional screening: No deficits noted. Tuberculosis screening: No symptoms or risk factors identified. Assessment: 04:13 General: Appears uncomfortable, Behavior is calm, cooperative, appropriate for age. cp4 Pain: Complains of pain in back and chest Pain radiates to back Pain currently is 9 out of 10 on a pain scale. Pain began gradually. Neuro: Level of Consciousness is awake, alert, obeys commands, Oriented to person, place, time, situation. Cardiovascular: Reports chest pain, nausea, Rhythm is sinus bradycardia. Respiratory: No deficits noted. GI: No deficits noted. : No deficits noted. EENT: No deficits noted. Derm: No deficits noted. Musculoskeletal: No deficits noted. 07:22 Reassessment: Patient states feeling better. Patient states symptoms have improved. iw General: Appears in no apparent distress. comfortable, Behavior is calm, cooperative. Neuro: Level of Consciousness is awake, alert, obeys commands, Oriented to person, place, time, situation, Moves all extremities. Full function. Cardiovascular: Patient's skin is warm and dry. Respiratory: Respiratory effort is even, unlabored, Respiratory pattern is regular, symmetrical. Musculoskeletal: Range of motion: intact in all extremities. 08:30 Reassessment: Patient appears in no apparent distress at this time. Patient and/or iw family updated on plan of care and expected duration. Pain level reassessed. Patient is alert, oriented x 3, equal unlabored respirations, skin warm/dry/pink. 10:41 Reassessment: Patient appears in no apparent distress at this time. Patient and/or bp family updated on plan of care and expected duration. Pain level reassessed. Patient is alert, oriented x 3, equal unlabored respirations, skin warm/dry/pink. Vital Signs: 03:58 BP 158 / 75; Pulse 62; Resp 20; Temp 97.3; Pulse Ox 100% ; Weight 72.12 kg; Height 5 vc1 ft. 4 in. ; 05:00 BP 144 / 69; Pulse 55; Resp 18; Pulse Ox 100% ; cp4 06:00 BP 132 / 62; Pulse 50; Resp 18; Pulse Ox 100% ; cp4 07:23 BP 131 / 65; Pulse 54; Resp 16; Pulse Ox 100% on R/A; iw 10:41 BP 128 / 54; Pulse 47; Resp 15; Pulse Ox 100% ; bp 03:58 Body Mass Index 27.29 (72.12 kg, 162.56 cm) vc1 [place] Coma Score: 05:06 Eye Response: spontaneous(4). Motor Response: obeys commands(6). Verbal Response: sp4 oriented(5). Total: 15. ED Course: 03:39 Patient arrived in ED. [id number] 03:54 Rigo Medina MD is Attending Physician. sp4 04:00 Kitty Pelletier is Primary Nurse. cp4 04:00 XRAY Chest (1 view) Sent. cp4 04:08 Triage completed. vc1 04:10 Arm band placed on right wrist. vc1 04:13 No provider procedures requiring assistance completed. Initial lab(s) drawn, by me, cp4 sent to lab. Inserted saline lock: 22 gauge in left antecubital area, using aseptic technique. Blood collected. Flushed with 10 mL NS. Patient maintains SpO2 saturation greater than 95% on room air. 04:13 Placed in gown. Bed in low position. Call light in reach. Side rails up X2. Client cp4 placed on continuous cardiac and pulse oximetry monitoring. NIBP monitoring applied. monitor and storage bin tender on. Pulse ox on. 04:38 XRAY Chest (1 view) In Process Unspecified. EDMS 07:24 Primary Nurse role handed off by Kitty Pelletier iw 07:24 Manjula Patterson, RN is Primary Nurse. iw 08:30 Troponin High Sensitivity Sent. iw 08:30 Repeat lab(s) drawn. by me, sent to lab. iw 09:00 Attending Physician role handed off by Rigo Medina MD sd2 09:00 Renee Cosby MD is Attending Physician. sd2 09:36 Lipase Sent. bp 09:36 Hemoglobin A1c Sent. bp 11:46 IV discontinued, intact, bleeding controlled, No redness/swelling at site. Pressure iw dressing applied. Administered Medications: 04:27 Not Given (Patient Refused): ondansetron 4 mg IVP once; over 2 minutes cp4 Medication: 04:12 VIS not applicable for this client. vc1 Outcome: 11:29 Discharge ordered by . sd2 11:46 Discharged to home ambulatory, iw 11:46 Condition: good 11:46 Discharge instructions given to patient, Instructed on discharge instructions, follow up and referral plans. Demonstrated understanding of instructions, follow-up care, 11:46 Patient left the ED. iw Signatures: Dispatcher [employer] EDMS Manjula Patterson RN RN iw Ian Saucedo RN RN Serenity Owen [id number] Chloé Padilla RN RN vc1 Renee Cosby MD MD sd2 Rigo Medina MD MD sp4 Kitty Pelletier cp4
--- NOTE | 2024-03-26 12:00 | RAD REPORT ---
EXAM DESCRIPTION: Chest Single View CLINICAL HISTORY: CHEST PAIN COMPARISON: None TECHNIQUE: Single AP view of the chest. FINDINGS: Lung volumes adequate. Cardiac silhouette is normal in size. Thoracic aortic atherosclerosis. No pneumothorax. No large pleural effusion. No focal consolidation. No acute bony finding. IMPRESSION: No acute cardiopulmonary findings. Electronically signed by: Aram Patel MD 03/26/2024 06:18 AM CDT RP Z9 Due to temporary technical issues with the PACS/Fluency reporting system, reports are being signed by the in house radiologists without review as a courtesy to insure prompt reporting. The interpreting radiologist is fully responsible for the content of the report.
[2024-03-26 12:58] VITALS: TEMP 97.3; O2SAT 100
[2024-03-26 13:16] VITALS: BP 128/54
--- NOTE | 2024-03-26 13:29 | EKG ---
Test Date: 2024-03-26 Test Time: 03:55:32 Pulp Beater: GURINDER MEASUREMENT RESULTS: Intervals: Rate: 55 TX: 116 QRSD: 76 QT: 410 QTc: 392 [place]: P: 36 TX: 116 QRS: 15 T: 44 INTERPRETIVE STATEMENTS: Sinus bradycardia Otherwise normal ECG Compared to ECG 11/11/2023 12:18:23 Sinus rhythm no longer present Sinus arrhythmia no longer present Electronically Signed On 03-26-24 13:28:41 CDT by Gabe Souza
== END 2024-03-26 11:46 | disposition home or self-care (01) ==
LOC: ER 03:34
DX: R07.89 Other chest pain (principal); R10.13 Epigastric pain; I10 Essential (primary) hypertension
CPT/HCPCS: 93005; 85025; 80048; 36415; 80076; 84443; 84484 ×2; 84439; 83690; 86140; 71045; 99284; J2405

== ENCOUNTER 2024-05-11 19:53 | Emergency (ER) | payer OTHER ==
[2024-05-11] MEDS ORDERED: DIAZEPAM 5 MG TABLET ONE (20:08)
[2024-05-11] MEDS ORDERED: NA CHLORIDE 0.9% 1,000 ML ONE (20:28)
[2024-05-11 21:07] LABS: Absolute Lymphocytes (CBC) 1.3 K/uL (0.7-4.9); Absolute Monocytes 0.5 K/uL (0.1-1.3); Absolute Neutrophil 4.1 K/uL (1.8-8.0); Basophils % 0.8 % (0-1.3); Eosinophils % 0.7 % (0-4.4); Hematocrit 36.4 % (36.0-45.0); Lymphocytes % 22.6 % (15.3-44.8); MCH 27.4 pg (27.0-35.0); MCHC 33.1 g/dL (32.0-36.0); MCV 82.8 fL (80-100); MPV 7.6 fL (7.6-11.3); Monocytes % 7.6 % (3.3-12.3); Neutrophils % 68.3 % (41.7-73.7); Nucleated Red Blood Cells % 0.2 % (0-0); Platelets 435 thou/uL (152-406); RBC Red Blood Cell Count 4.39 M/uL (3.86-4.86); Red Cell Distribution Width 14.5 % (12.1-15.2)
[2024-05-11 21:25] LABS: D-Dimer 0.257 FEUug/mL (0-0.500); PT Prothrombin Time 11.9 SECONDS (9.4-12.5); PTT, Activated Partial Thromb 29.3 SECONDS (24.3-36.9); Protime INR 1.06
[2024-05-11 21:27] LABS: ALT/SGPT 18 U/L (13-56); AST/SGOT 16 U/L (15-37); Albumin 3.3 g/dL (3.4-5.0); Albumin/Globulin Ratio 0.8 (1.1-1.8); Alkaline Phosphatase 61 U/L (45-117); Anion Gap 9.4 mEq/L (5.0-15.0); BUN Blood Urea Nitrogen 10 mg/dL (7-18); Bicarbonate 25 mEq/L (21-32); Bilirubin Total 0.5 mg/dL (0.2-1.0); Creatine Phosphokinase 106 U/L (26-192); Globulin 4.1 g/dL (2.3-3.5); Glomerular Filtration Rate 88 ml/min (=/>90); Glucose Level 94 mg/dL (74-106); Lipase 87 U/L (13-75); NT PRO-BNP 129 pg/mL (<125); Potassium 3.4 mEq/L (3.5-5.1); Protein, Total 7.4 g/dL (6.4-8.2); Sodium Level 140 mEq/L (136-145)
[2024-05-11 21:29] LABS: Bilirubin Direct < 0.2 mg/dL (0-0.2); Bilirubin Indirect, Calculated 0.3 mg/dL (0.2-0.8)
[2024-05-11 21:40] LABS: Thyroid Stimulating Hormone 0.546 uIU/mL (0.358-3.740)
--- NOTE | 2024-05-11 21:46 | RAD REPORT ---
EXAMINATION: ONE VIEW CHEST XR CLINICAL INDICATION: Female, 63 years old. [facility] MAIN CHEST PAIN Bed Name: 8 TECHNIQUE: Frontal chest projection is submitted. Examination is limited by patient positioning and t echnique. COMPARISON: 03/26/2024 FINDINGS: The lungs are well inflated and clear. No pneumothorax or sizable effusion. The heart is normal in s ize. IMPRESSION: No acute intrathoracic abnormalities.
[2024-05-11 22:09] LABS: C-Reactive Protein < 2.90 mg/L (<3.00)
[2024-05-11 23:40] LABS: Troponin High Sensitivity 6.2 pg/mL (<58.9)
--- NOTE | 2024-05-12 | ER ---
Nurse's Notes [facility] Name: Rebecca Pineda Age: 63 yrs Sex: Female : 1960 Arrival Date: 05/11/2024 Time: 19:53 Bed 8 Private MD: Diagnosis: Chest pain, unspecified;Resting Tremors, Anxiety Disorder Not Otherwise specified Presentation: 05/11 20:06 Chief complaint: Patient states: About 5 twenty I started having some sharp pain in my vc1 chest. That pain is gone but I have a pain in my stomach that moves up to my chest now. Coronavirus screen: Vaccine status: Patient reports receiving the 2nd dose of the covid vaccine. Client denies travel out of the [place] in the last 14 days. At this time, the client does not indicate any symptoms associated with coronavirus-19. Ebola Screen: Patient negative for fever greater than or equal to 101.5 degrees Fahrenheit, and additional compatible Ebola Virus Disease symptoms Patient denies exposure to infectious person. Patient denies travel to an Ebola-affected area in the 21 days before illness onset. No symptoms or risks identified at this time. Initial Sepsis Screen: Does the patient meet any 2 criteria? No. Patient's initial sepsis screen is negative. Does the patient have a suspected source of infection? No. Patient's initial sepsis screen is negative. Risk Assessment: Do you want to hurt yourself or someone else? Patient reports no desire to harm self or others. Onset of symptoms was May 11, 2024 at 17:20. Care prior to arrival: None. Activity prior to arrival: None. Mechanism of Injury: No Mechanism of Injury. Transition of care: patient was not received from another setting of care. 20:06 Method Of Arrival: Wheelchair vc1 20:06 Acuity: PADMAJA 3 vc1 Triage Assessment: 20:09 General: Appears in no apparent distress. uncomfortable, slender, well groomed, well vc1 developed, well nourished, Behavior is cooperative, anxious. Pain: Complains of pain in epigastric area Pain radiates to chest Pain began 3 hours ago. Is continuous, Noted to be restless, Also complains of no other associated symptoms. EENT: No deficits noted. No signs and/or symptoms were reported regarding the EENT system. Neuro: Level of Consciousness is awake, alert, obeys commands, Oriented to person, place, time, situation, Appropriate for age. Cardiovascular: Reports chest pain, Denies shortness of breath, Capillary refill < 3 seconds Patient's skin is warm and dry. Chest pain is described as severe, quality is sharp. Respiratory: Airway is patent Respiratory effort is even, unlabored, Respiratory pattern is regular, symmetrical. GI: Abdomen is flat, non-distended, Reports epigastric pain. Derm: Skin is intact, is healthy with good turgor, Skin is dry, Skin is normal, Skin temperature is warm. Musculoskeletal: Circulation, motion, and sensation intact. Range of motion: intact in all extremities. Historical: - Allergies: 20:08 PENICILLINS; vc1 - Home Meds: 20:08 Iron CR Oral [Active]; Vitamin D Oral [Active]; vc1 - PMHx: 20:10 None; vc1 - PSHx: 20:08 Tonsillectomy; vc1 - Immunization history:: Client reports receiving the 2nd dose of the Covid vaccine. - Infectious Disease History:: Denies. - Social history:: Smoking status: Patient denies any tobacco usage or history of. - Family history:: not pertinent. Screenin:08 Abuse screen: Denies threats or abuse. Nutritional screening: No deficits noted. vc1 Tuberculosis screening: No symptoms or risk factors identified. 20:50 [facility] ED Fall Risk Assessment (Adult) History of falling in the last 3 months, bm8 including since admission No falls in past 3 months (0 pts) Confusion or Disorientation No (0 pts) Intoxicated or Sedated No (0 pts) Impaired Gait No (0 pts) Mobility Assist Device Used No (0 pt) Altered Elimination No (0 pt) Score/Fall Risk Level 0 - 2 = Low Risk Oriented to surroundings, Maintained a safe environment, Educated pt \\T\\ family on fall prevention, incl call for assistance when getting out of bed, Assessed \\T\\ reinforced patient's understanding of fall precautions, Hourly rounding (assess needs \\T\\ fall precautionary measures) done, Used ambulatory aids as needed (educated on \\T\\ assisted with), Used gait belt as appropriate. Assessment: 20:50 Reassessment: Patient appears in no apparent distress at this time. Patient and/or bm8 family updated on plan of care and expected duration. Pain level reassessed. Patient is alert, oriented x 3, equal unlabored respirations, skin warm/dry/pink. pt reports that tremors and chest pain have stopped is feeling better. states "i just want to know why this keeps happening" Patient states symptoms have improved. General: Appears in no apparent distress. comfortable, Behavior is calm, cooperative, appropriate for age. Pain: Denies pain. Neuro: Level of Consciousness is awake, alert, obeys commands, Oriented to person, place, time, situation, Appropriate for age. Cardiovascular: Denies chest pain, Heart tones S1 S2 present Capillary refill < 3 seconds Patient's skin is warm and dry. Respiratory: No deficits noted. Airway is patent Respiratory effort is even, unlabored, Respiratory pattern is regular, symmetrical. GI: No signs and/or symptoms were reported involving the gastrointestinal system. : No signs and/or symptoms were reported regarding the genitourinary system. EENT: No signs and/or symptoms were reported regarding the EENT system. Derm: No signs and/or symptoms reported regarding the dermatologic system. Musculoskeletal: No signs and/or symptoms reported regarding the musculoskeletal system. 22:19 Reassessment: Patient appears in no apparent distress at this time. Patient and/or bm8 family updated on plan of care and expected duration. Pain level reassessed. Patient is alert, oriented x 3, equal unlabored respirations, skin warm/dry/pink. Patient denies pain at this time. Patient states feeling better. Patient states symptoms have improved. 23:38 Reassessment: Patient appears in no apparent distress at this time. No changes from bm8 previously documented assessment. Patient and/or family updated on plan of care and expected duration. Pain level reassessed. Patient is alert, oriented x 3, equal unlabored respirations, skin warm/dry/pink. Patient denies pain at this time. Patient states feeling better. Patient states symptoms have improved. Pain: Denies pain. 05/12 00:04 Reassessment: Patient appears in no apparent distress at this time. No changes from bm8 previously documented assessment. Patient and/or family updated on plan of care and expected duration. Pain level reassessed. Patient is alert, oriented x 3, equal unlabored respirations, skin warm/dry/pink. Patient denies pain at this time. Patient states feeling better. Patient states symptoms have improved. Pain: Denies pain. Vital Signs: 05/11 20:06 BP 126 / 103; Pulse 96; Resp 14; Temp 99; Pulse Ox 100% ; Weight 71 kg; vc1 20:13 BP 145 / 84; Pulse 91; Resp 17; Pulse Ox 100% on R/A; dd2 20:50 BP 133 / 79; Pulse 64; Resp 18; Temp 99; Pulse Ox 100% ; Pain 0/10; bm8 21:30 BP 132 / 77; Pulse 60; Resp 17; Temp 99; Pulse Ox 100% ; Pain 0/10; bm8 22:35 BP 126 / 76; Pulse 81; Resp 18; Temp 99; Pulse Ox 100% ; Pain 0/10; bm8 23:38 BP 112 / 56; Pulse 61; Resp 17; Temp 98.7; Pulse Ox 100% ; Pain 0/10; bm8 20:50 Pain Scale: Adult bm8 21:30 Pain Scale: Adult bm8 22:35 Pain Scale: Adult bm8 23:38 Pain Scale: Adult bm8 [place] Coma Score: 20:50 Eye Response: spontaneous(4). Motor Response: obeys commands(6). Verbal Response: bm8 oriented(5). Total: 15. 22:44 Eye Response: spontaneous(4). Motor Response: obeys commands(6). Verbal Response: sp4 oriented(5). Total: 15. 23:38 Eye Response: spontaneous(4). Motor Response: obeys commands(6). Verbal Response: bm8 oriented(5). Total: 15. 05/12 00:04 Eye Response: spontaneous(4). Motor Response: obeys commands(6). Verbal Response: bm8 oriented(5). Total: 15. ED Course: 05/11 19:53 Patient arrived in ED. [id number] 19:58 Rigo Medina MD is Attending Physician. sp4 20:07 Nick Nunn, RN is Primary Nurse. bm8 20:08 Triage completed. vc1 20:08 Arm band placed on right wrist. vc1 20:09 Missed attempt(s): 20 gauge in right forearm. 22 gauge in right antecubital area. cm10 Bleeding controlled, band aid applied, catheter tip intact. 20:30 Initial lab(s) drawn, by wi, sent to lab. First set of blood cultures drawn by me, EKG bm8 done, by ED staff. Inserted saline lock: 20 gauge in left forearm, using aseptic technique. Flushed with 10 mL NS. 20:50 Patient has correct armband on for positive identification. Call light in reach. Side bm8 rails up X2. Adult w/ patient. Client placed on continuous cardiac and pulse oximetry monitoring. NIBP monitoring applied. apartment leasing agent on. Pulse ox on. NIBP on. Door closed. Noise minimized. Warm blanket given. Pillow given. Verbal reassurance given. Head of bed elevated. 20:50 Second set of blood cultures drawn by me. Inserted saline lock: 22 gauge in left hand, bm8 using aseptic technique. Blood collected. Flushed with 10 mL NS. Patient maintains SpO2 saturation greater than 95% on room air. 21:02 No provider procedures requiring assistance completed. bm8 21:03 XRAY CXR (1 view) In Process Unspecified. EDMS 22:19 CT Aorta for Dissection In Process Unspecified. EDMS 23:00 Lipase Sent. dd2 23:00 Troponin High Sensitivity Sent. dd2 05/12 00:04 Provided Education on: post er care. bm8 00:04 IV discontinued, intact, bleeding controlled, No redness/swelling at site. Pressure bm8 dressing applied, x2. Administered Medications: 05/11 20:30 Drug: Diazepam PO 5 mg PO once Route: PO; dd2 21:42 Follow up: Response: No adverse reaction bm8 21:01 Drug: NS 0.9% IV 1000 ml IV at 1 bolus Per protocol; 1000 mL bolus Route: IV; Rate: 1 bm8 bolus; Site: left forearm; 22:37 Follow up: Response: No adverse reaction; IV Status: Completed infusion; IV Intake: bm8 1000ml Medication: 20:50 VIS not applicable for this client. bm8 Intake: 22:37 IV: 1000ml; Total: 1000ml. bm8 Outcome: 05/12 00:00 Discharge ordered by MD. swann 00:04 Discharged to home ambulatory, bm8 00:04 Condition: stable 00:04 Discharge instructions given to patient, family, Instructed on discharge instructions, follow up and referral plans. no drinking with medication, no driving heavy equipment, medication usage, safety practices, Demonstrated understanding of instructions, follow-up care, medications, Prescriptions given X 1, 00:12 Patient left the ED. bm8 Signatures: Dispatcher [employer] EDMS Serenity Gardiner [email or web address] Chloé Padilla, RN RN vc1 Rigo Medina MD MD sp4 Jasmyn Ngo RN RN cm10 Nick Nunn RN RN bm8 MALU SINGH RN RN dd2
--- NOTE | 2024-05-12 00:01 | EDPHYS ---
Physician Documentation [facility] Name: Rebecca Pineda Age: 63 yrs Sex: Female : 1960 Arrival Date: 05/11/2024 Time: 19:53 Bed 8 Private MD: ED Physician Rigo Medina HPI: 05/11 19:58 This 63 yrs old Black Female presents to ER via Unassigned with complaints of Chest sp4 Pain, Shortness Of Breath. 05/12 22:10 30-year-old female presents to the emergency room with complaint of the chest pain, sp4 dyspnea, abdominal pain, tremors, anxiety. Historical: - Allergies: 05/11 20:08 PENICILLINS; vc1 - Home Meds: 20:08 Iron CR Oral [Active]; Vitamin D Oral [Active]; vc1 - PMHx: 20:10 None; vc1 - PSHx: 20:08 Tonsillectomy; vc1 - Immunization history:: Client reports receiving the 2nd dose of the Covid vaccine. - Infectious Disease History:: Denies. - Social history:: Smoking status: Patient denies any tobacco usage or history of. - Family history:: not pertinent. ROS: 05/12 22:10 Constitutional: Negative for fever, chills, and weight loss, chest pain, positive sp4 abdominal pain, positive tremors, positive anxiety, positive feeling unwell. All other systems are negative, Exam: 05/11 22:44 Constitutional: This is a well developed, well nourished patient who is awake, alert, sp4 and in no acute distress. Patient is appearing female with generalized tremors Head/Face: Normocephalic, atraumatic. Eyes: Pupils equal round and reactive to light, extra-ocular motions intact. Lids and lashes normal. Conjunctiva and sclera are not injected. Cornea within normal limits. Periorbital areas with no swelling, redness, or edema. ENT: Nares patent. No nasal discharge, no septal abnormalities noted. Tympanic membranes are normal and external auditory canals are clear. Oropharynx with no redness, swelling, or masses, exudates, or evidence of obstruction, uvula midline. Mucous membranes moist. Neck: Trachea midline, no thyromegaly or masses palpated, and no cervical lymphadenopathy. Supple, full range of motion without nuchal rigidity, or vertebral point tenderness. Chest/axilla: Normal chest wall appearance and motion. Nontender with no deformity. No lesions are appreciated. Cardiovascular: Regular rate and rhythm with a normal S1 and S2. No gallops, murmurs, or rubs. Normal PMI, no JVD. No pulse deficits. Respiratory: Lungs have equal breath sounds bilaterally, clear to auscultation and percussion. No rales, rhonchi or wheezes noted. No increased work of breathing, no retractions or nasal flaring. Abdomen/GI: Soft, with normal bowel sounds. No distension or tympany. No guarding or rebound. No evidence of tenderness throughout. Back: No spinal tenderness. No costovertebral tenderness. Skin: Warm, dry with normal turgor. Normal color with no rashes, no lesions, and no evidence of cellulitis. MS/ Extremity: Pulses equal, no cyanosis. Neurovascular intact. Full, normal range of motion. Neuro: Awake and alert, GCS 15, oriented to person, place, time, and situation. Cranial nerves II-XII grossly intact. Motor strength 5/5 in all extremities. Sensory grossly intact. Psych: Awake, alert, with orientation to person, place and time. Behavior,-patient is appearing anxious ECG was reviewed by the Attending Physician. KG at 2001 normal sinus rhythm rate 85 with sinus arrhythmia Vital Signs: 20:06 BP 126 / 103; Pulse 96; Resp 14; Temp 99; Pulse Ox 100% ; Weight 71 kg; vc1 20:13 BP 145 / 84; Pulse 91; Resp 17; Pulse Ox 100% on R/A; dd2 20:50 BP 133 / 79; Pulse 64; Resp 18; Temp 99; Pulse Ox 100% ; Pain 0/10; bm8 21:30 BP 132 / 77; Pulse 60; Resp 17; Temp 99; Pulse Ox 100% ; Pain 0/10; bm8 22:35 BP 126 / 76; Pulse 81; Resp 18; Temp 99; Pulse Ox 100% ; Pain 0/10; bm8 23:38 BP 112 / 56; Pulse 61; Resp 17; Temp 98.7; Pulse Ox 100% ; Pain 0/10; bm8 20:50 Pain Scale: Adult bm8 21:30 Pain Scale: Adult bm8 22:35 Pain Scale: Adult bm8 23:38 Pain Scale: Adult bm8 [place] Coma Score: 20:50 Eye Response: spontaneous(4). Motor Response: obeys commands(6). Verbal Response: bm8 oriented(5). Total: 15. 22:44 Eye Response: spontaneous(4). Motor Response: obeys commands(6). Verbal Response: sp4 oriented(5). Total: 15. 23:38 Eye Response: spontaneous(4). Motor Response: obeys commands(6). Verbal Response: bm8 oriented(5). Total: 15. 05/12 00:04 Eye Response: spontaneous(4). Motor Response: obeys commands(6). Verbal Response: bm8 oriented(5). Total: 15. MDM: 05/11 20:00 Patient medically screened. sp4 22:44 ED course: EXAMINATION: ONE VIEW CHEST XR CLINICAL INDICATION: Female, 63 years old. sp4 [facility] MAIN CHEST PAIN Bed Name: 8 TECHNIQUE: Frontal chest projection is submitted. Examination is limited by patient positioning and technique. COMPARISON: 03/26/2024 FINDINGS: The lungs are well inflated and clear. No pneumothorax or sizable effusion. The heart is normal in size. IMPRESSION: No acute intrathoracic abnormalities. . 23:48 ED course: EXAM: CTAngiography Chest, Abdomen and Pelvis With Intravenous Contrast sp4 CLINICAL HISTORY: The patient is 63 years old and is Female; ABD PAIN TECHNIQUE: Axial computed tomographic angiography images of the chest, abdomen and pelvis with intravenous contrast. Sagittal and coronal reformatted images were created and reviewed. This CT exam was performed using one or more of the following dose reduction techniques: automated exposure control, adjustment of the mA and/or kV according to patient size, and/or use of iterative reconstruction technique. MIP reconstructed images were created and reviewed. COMPARISON: No relevant prior studies available. FINDINGS: VASCULATURE: AORTA: No acute findings. No aortic aneurysm. No dissection. PULMONARYARTERIES: Unremarkable as visualized. No pulmonary embolism is identified. GREAT VESSELS OF AORTIC ARCH: No acute findings. No dissection. No arterial occlusion or significant stenosis. CELIAC TRUNK AND MESENTERIC ARTERIES: No acute findings. No occlusion or significant stenosis. RENAL ARTERIES: No acute findings. No occlusion or significant stenosis. ILIAC ARTERIES: No acute findings. No occlusion or significant stenosis. CHEST: LUNGS: Unremarkable. No mass. No consolidation. PLEURAL SPACE: Unremarkable. No significant effusion. No pneumothorax. HEART: Unremarkable. No cardiomegaly. No significant pericardial effusion. ABDOMEN: LIVER: Unremarkable. No mass. GALLBLADDER AND BILE DUCTS: The gallbladder slightly contracted. No calcified gallstones or ductal dilatation is seen. PANCREAS: Unremarkable. No ductal dilation. No mass. SPLEEN: Unremarkable. No splenomegaly. ADRENALS: Unremarkable. No mass. KIDNEYS AND URETERS: Unremarkable. No hydronephrosis. No solid mass. STOMACH AND BOWEL: Stomach is decompressed. The small bowel is normal in caliber. Stool is present throughout the colon. There is no mucosal thickening or evidence of obstruction. PELVIS: APPENDIX: The appendix is normal in caliber without surrounding inflammation. BLADDER: The bladder is well distended. REPRODUCTIVE: Unremarkable as visualized. CHEST, ABDOMEN and PELVIS: INTRAPERITONEAL SPACE: A few calcified phleboliths are present within the pelvis. No significant fluid collection. No free air. BONES/JOINTS: No acute fracture. No dislocation. SOFT TISSUES: Subtle small fat-containing ventral wall hernias are present. LYMPH NODES: Unremarkable. No enlarged lymph nodes. IMPRESSION: 1. No evidence of aortic aneurysm or dissection. 2. No acute findings on this CTA of the chest, abdomen and pelvis to explain the patient's symptoms. 05/12 22:10 Differential diagnosis: acute pericarditis, costochondritis, esophagitis, gastritis, sp4 unstable angina. HEART Score: History: Slightly Suspicious (0), ECG: Normal (0), Age: > 45 and < 65 years (1), Risk Factors: No Risk Factors Known (0), Troponin: < or = 1 x Normal Limit (0), Total Score = 1. The patient was not given aspirin in the Emergency Department. Patient reports taking aspirin within the past 24 hours. Data reviewed: vital signs, nurses notes, old medical records, lab test result(s), EKG, radiologic studies, CT scan. ED course: Parameters and the symptoms improved after p.o. Valium. Suspect moderate to severe anxiety. Stable for discharge home.. 05/11 20:03 Order name: BMP; Complete Time: 22:42 sp4 05/11 20:03 Order name: Blood Culture Adult (2) [facility] 05/11 20:03 Order name: CBC with Diff; Complete Time: 22:42 05/11 20:03 Order name: CPK; Complete Time: 22:42 05/11 20:03 Order name: D-Dimer; Complete Time: 22:42 05/11 20:03 Order name: Hepatic Function; Complete Time: 22:42 05/11 20:03 Order name: Lipase; Complete Time: 22:42 05/11 20:03 Order name: Magnesium; Complete Time: 22:42 05/11 20:03 Order name: NT PRO-BNP; Complete Time: 22:42 05/11 20:03 Order name: PT-INR; Complete Time: 22:42 [facility] 05/11 20:03 Order name: Ptt, Activated; Complete Time: 22:42 05/11 20:03 Order name: Troponin HS; Complete Time: 22:42 05/11 20:03 Order name: Lipase [facility] 05/11 20:19 Order name: TSH; Complete Time: 22:42 [facility] 05/11 20:19 Order name: T4 Free; Complete Time: 22:42 05/11 20:19 Order name: CRP; Complete Time: 22:42 [facility] 05/11 22:43 Order name: Troponin High Sensitivity; Complete Time: 23:47 05/11 22:43 Order name: Lipase; Complete Time: 23:47 05/11 20:03 Order name: XRAY CXR (1 view); Complete Time: 22:42 [facility] 05/11 20:16 Order name: CT Aorta for Dissection 05/11 20:03 Order name: EKG; Complete Time: 20:03 05/11 20:03 Order name: Cardiac monitoring; Complete Time: 20:07 [facility] 05/11 20:03 Order name: EKG - Nurse/Tech; Complete Time: 20:07 [facility] 05/11 20:03 Order name: IV Saline Lock; Complete Time: 20: [facility] 05/11 20:03 Order name: Labs collected and sent; Complete Time: 20: [facility] 05/11 20:03 Order name: O2 Per Protocol; Complete Time: 20:07 [facility] 05/11 20:03 Order name: O2 Sat Monitoring; Complete Time: 20: EC/17 22:44 Rate is 85 beats/min. Rhythm is regular, Normal Sinus Rhythm. QRS [place] is Normal. [place] sp4 interval is normal. QRS interval is normal. QT interval is normal. No Q waves. T waves are Normal. No ST changes noted. Clinical impression: No evidence of ischemia. Interpreted by me. Reviewed by me. Administered Medications: 20:30 Drug: Diazepam PO 5 mg PO once Route: PO; dd2 21:42 Follow up: Response: No adverse reaction bm8 21:01 Drug: NS 0.9% IV 1000 ml IV at 1 bolus Per protocol; 1000 mL bolus Route: IV; Rate: 1 bm8 bolus; Site: left forearm; 22:37 Follow up: Response: No adverse reaction; IV Status: Completed infusion; IV Intake: bm8 1000ml Disposition Summary: 05/12/24 00:00 Discharge Ordered Notes: Location: Home sp4 Problem: new sp4 Symptoms: have improved sp4 Condition: Stable sp4 Diagnosis - Chest pain, unspecified sp4 - Resting Tremors, Anxiety Disorder Not Otherwise specified sp4 Followup: sp4 - With: Private Physician - When: 10 - 14 days - Reason: Recheck today's complaints Discharge Instructions: - Discharge Summary Sheet sp4 - Tremor sp4 Forms: - Patient Portal Instructions sp4 Prescriptions: - Valium 5 mg Oral tablet - take 1 tablet ORAL route once daily As needed PRN tremors; 20 tablet; Refills: sp4 0, Product Selection Permitted Signatures: Dispatcher [employer] EDMS Chloé Padilla RN RN vc1 Rigo Medina MD MD sp4 Nick Nunn RN RN bm8 MALU SINGH RN RN dd2 Corrections: (The following items were deleted from the chart) 20:04 20:03 BASIC METABOLIC PANEL+C.LAB.BRZ ordered. EDMS EDMS 20:04 20:03 BLOOD CULTURE*+BA.LAB.BRZ ordered. EDMS EDMS 20:04 20:03 CBC+H.LAB.BRZ ordered. EDMS EDMS 20:04 20:03 CREATINE PHOSPHOKINASE+C.LAB.BRZ ordered. EDMS EDMS 20:04 20:03 D-DIMER+COAG.LAB.BRZ ordered. EDMS EDMS 20:04 20:03 HEPATIC FUNCTION+C.LAB.BRZ ordered. EDMS EDMS 20:04 20:03 LIPASE+C.LAB.BRZ ordered. EDMS EDMS 20:04 20:03 MAGNESIUM+C.LAB.BRZ ordered. EDMS EDMS 20:04 20:03 PROBNP+C.LAB.BRZ ordered. EDMS EDMS 20:04 20:03 PROTIME (+INR)+COAG.LAB.BRZ ordered. EDMS EDMS 20:04 20:03 PTT, ACTIVATED+COAG.LAB.BRZ ordered. EDMS EDMS 20:04 20:03 Troponin High Sensitivity+C.LAB.BRZ ordered. EDMS EDMS
[2024-05-12 01:12] VITALS: O2SAT 100
[2024-05-12 01:19] VITALS: BP 112/56; TEMP 98.7
--- NOTE | 2024-05-12 08:15 | RAD REPORT ---
EXAM: CTAngiography Chest, Abdomen and Pelvis With Intravenous Contrast CLINICAL HISTORY: The patient is 63 years old and is Female; ABD PAIN TECHNIQUE: Axial computed tomographic angiography images of the chest, abdomen and pelvis with intravenous contr ast. Sagittal and coronal reformatted images were created and reviewed. This CT exam was performed using one or more of the fol lowing dose reduction techniques: automated exposure control, adjustment of the mA and/or kV according to patient size, and /or use of iterative reconstruction technique. MIP reconstructed images were created and reviewed. COMPARISON: No relevant prior studies available. FINDINGS: VASCULATURE: AORTA: No acute findings. No aortic aneurysm. No dissection. PULMONARYARTERIES: Unremarkable as visualized. No pulmonary embolism is identified. GREAT VESSELS OF AORTIC ARCH: No acute findings. No dissection. No arterial occlusion or significant stenosis. CELIAC TRUNK AND MESENTERIC ARTERIES: No acute findings. No occlusion or significant stenosis. RENAL ARTERIES: No acute findings. No occlusion or significant stenosis. ILIAC ARTERIES: No acute findings. No occlusion or significant stenosis. CHEST: LUNGS: Unremarkable. No mass. No consolidation. PLEURAL SPACE: Unremarkable. No significant effusion. No pneumothorax. HEART: Unremarkable. No cardiomegaly. No significant pericardial effusion. ABDOMEN: LIVER: Unremarkable. No mass. GALLBLADDER AND BILE DUCTS: The gallbladder slightly contracted. No calcified gallstones or ductal di latation is seen. PANCREAS: Unremarkable. No ductal dilation. No mass. SPLEEN: Unremarkable. No splenomegaly. ADRENALS: Unremarkable. No mass. KIDNEYS AND URETERS: Unremarkable. No hydronephrosis. No solid mass. STOMACH AND BOWEL: Stomach is decompressed. The small bowel is normal in caliber. Stool is present th roughout the colon. There is no mucosal thickening or evidence of obstruction. PELVIS: APPENDIX: The appendix is normal in caliber without surrounding inflammation. BLADDER: The bladder is well distended. REPRODUCTIVE: Unremarkable as visualized. CHEST, ABDOMEN and PELVIS: INTRAPERITONEAL SPACE: A few calcified phleboliths are present within the pelvis. No significant flui d collection. No free air. BONES/JOINTS: No acute fracture. No dislocation. SOFT TISSUES: Subtle small fat-containing ventral wall hernias are present. LYMPH NODES: Unremarkable. No enlarged lymph nodes. IMPRESSION: 1. No evidence of aortic aneurysm or dissection. 2. No acute findings on this CTA of the chest, abdomen and pelvis to explain the patient's symptoms. Electronically signed by: Yulia Valadez MD 05/11/2024 11:25 PM CDT RP Due to temporary technical issues with the PACS/Twingly reporting system, reports are being delfin d by the in-house radiologist without review as a courtesy to ensure prompt reporting the interpreting radiologist is fully responsible for the content of the report. Transcribed Date/Time: 05/12/2024 8:15 AM
--- NOTE | 2024-05-13 12:23 | EKG ---
Test Date: 2024-05-11 Test Time: 20:02:27 Manager Plant: DONOVAN MEASUREMENT RESULTS: Intervals: Rate: 85 OR: 124 QRSD: 74 QT: 360 QTc: 428 Salome: P: 71 OR: 124 QRS: 9 T: 36 INTERPRETIVE STATEMENTS: Normal sinus rhythm with sinus arrhythmia Normal ECG Compared to ECG 03/26/2024 03:55:32 Sinus bradycardia no longer present Electronically Signed On 05-13-24 12:18:16 CDT by Kishore Carmona
== END 2024-05-12 00:12 | disposition home or self-care (01) ==
LOC: ER 19:53
DX: R07.9 Chest pain, unspecified (principal); R25.1 Tremor, unspecified; F41.9 Anxiety disorder, unspecified
CPT/HCPCS: 96361; 93005; 87040 ×2; 85025; 80048; 36415; 83735; 82550; 85610; 85379; 80076; 85730; 84443; 84484 ×2; 84439; 83690 ×2; 83880; 86140; 71275; 74175; 71045; 96360; 99285; Q9967; J7030

== ENCOUNTER 2024-06-07 11:38 | Emergency (ER) | payer OTHER ==
[2024-06-07 12:34] LABS: Absolute Eosinophils 0.1 K/uL (0-0.5); Absolute Lymphocytes (CBC) 0.9 K/uL (0.7-4.9); Absolute Monocytes 0.2 K/uL (0.1-1.3); Absolute Neutrophil 3.6 K/uL (1.8-8.0); Basophils % 0.9 % (0-1.3); Eosinophils % 1.4 % (0-4.4); Hematocrit 42.5 % (36.0-45.0); Lymphocytes % 18.7 % (15.3-44.8); MCH 27.3 pg (27.0-35.0); MCHC 32.8 g/dL (32.0-36.0); MCV 83.2 fL (80-100); MPV 8.3 fL (7.6-11.3); Monocytes % 4.4 % (3.3-12.3); Neutrophils % 74.6 % (41.7-73.7); Platelets 515 thou/uL (152-406); RBC Red Blood Cell Count 5.11 M/uL (3.86-4.86); Red Cell Distribution Width 13.9 % (12.1-15.2)
[2024-06-07 12:35] LABS: PT Prothrombin Time 11.9 SECONDS (9.4-12.5); Protime INR 1.06
[2024-06-07 12:48] LABS: Anion Gap 6.5 mEq/L (5.0-15.0); Potassium 3.5 mEq/L (3.5-5.1); Troponin High Sensitivity 5.6 pg/mL (<58.9)
--- NOTE | 2024-06-07 12:56 | RAD REPORT ---
EXAMINATION: ONE VIEW CHEST XR CLINICAL INDICATION: CHEST PAIN TECHNIQUE: Frontal chest projection is submitted. Examination is limited by patient positioning and t echnique. COMPARISON: 05/11/2024 FINDINGS: The lungs are well inflated and clear. The heart is normal in size. No displaced fractures identified . IMPRESSION: No acute intrathoracic abnormalities.
--- NOTE | 2024-06-07 13:13 | ER ---
Nurse's Notes [facility] Name: Rebecca Pineda Age: 63 yrs Sex: Female : 1960 Arrival Date: 06/07/2024 Time: 11:38 Bed 8 Private MD: Diagnosis: Chest pain, unspecified;Acute gastritis Presentation: 06/07 11:44 Chief complaint: EMS states: CHEST PAIN SINCE 0400. Coronavirus screen: At this time, bp the client does not indicate any symptoms associated with coronavirus-19. Ebola Screen: No symptoms or risks identified at this time. Initial Sepsis Screen: Does the patient meet any 2 criteria? No. Patient's initial sepsis screen is negative. Does the patient have a suspected source of infection? No. Patient's initial sepsis screen is negative. Risk Assessment: Do you want to hurt yourself or someone else? Patient reports no desire to harm self or others. Onset of symptoms was June 07, 2024 at 04:00. Care prior to arrival: Glucose check: 117. 11:44 Method Of Arrival: EMS: [facility] bp 11:44 Acuity: PADMAJA 3 bp Triage Assessment: 11:45 General: Appears in no apparent distress. Behavior is calm, cooperative, appropriate bp for age. Pain: Complains of pain in chest. Cardiovascular: Rhythm is sinus bradycardia. Historical: - Allergies: 11:45 PENICILLINS; bp - Home Meds: 11:45 Propranolol Oral [Active]; bp - PSHx: 11:45 Tonsillectomy; bp - Immunization history:: Adult Immunizations up to date. - Infectious Disease History:: Denies. - Social history:: Smoking status: unknown. Screenin:45 [facility] ED Fall Risk Assessment (Adult) History of falling in the last 3 months, bp including since admission No falls in past 3 months (0 pts) Confusion or Disorientation No (0 pts) Intoxicated or Sedated No (0 pts) Impaired Gait No (0 pts) Mobility Assist Device Used No (0 pt) Altered Elimination No (0 pt) Score/Fall Risk Level 0 - 2 = Low Risk. Abuse screen: Denies threats or abuse. Denies injuries from another. Nutritional screening: No deficits noted. Tuberculosis screening: No symptoms or risk factors identified. Assessment: 11:45 General: Appears in no apparent distress. Behavior is cooperative, appropriate for age, bp anxious. Vital Signs: 11:44 BP 150 / 75; Pulse 55; Resp 16; Temp 98; Pulse Ox 98% ; bp 13:33 BP 143 / 67; Pulse 57; Resp 16; Temp 98; Pulse Ox 99% ; bp ED Course: 11:41 Patient arrived in ED. ec2 11:41 Junior Berrios MD is Attending Physician. ec2 11:43 Ian Saucedo, SONA is Primary Nurse. bp 11:45 Triage completed. bp 11:45 Arm band placed on. bp 11:45 Patient has correct armband on for positive identification. Provided Education on: N/A. bp Client placed on continuous cardiac and pulse oximetry monitoring. NIBP monitoring applied. monitor car operator on. Pulse ox on. NIBP on. 12:39 XRAY Chest (1 view) In Process Unspecified. EDMS 12:50 Initial lab(s) drawn, by me, sent to lab. EKG done, by ED staff, reviewed by Junior Berrios MD. Inserted saline lock: 20 gauge in right forearm, using aseptic technique. Blood collected. Flushed with 10 mL NS. 13:34 No provider procedures requiring assistance completed. IV discontinued, intact, bp bleeding controlled, No redness/swelling at site. Pressure dressing applied. Patient maintains SpO2 saturation greater than 95% on room air. Administered Medications: 13:32 Not Given (Patient Refused): morphineor iv 4 mg IVP once over 4 mins bp 13:32 Not Given (Patient Refused): [id number] mg IVP once; dilute with 10 mL 0.9% NaCl; bp give over 2 minutes 13:32 Drug: Pantoprazole PO 40 mg PO once Route: PO; bp 13:32 Follow up: Response: No adverse reaction bp Medication: 11:45 VIS not applicable for this client. bp Outcome: 13:13 Discharge ordered by . ec2 13:34 Discharged to home ambulatory, with family, bp 13:34 Condition: stable 13:34 Discharge instructions given to patient, Instructed on discharge instructions, follow up and referral plans. medication usage, Demonstrated understanding of instructions, follow-up care, medications, Prescriptions given X 1, 13:42 Patient left the ED. bp Signatures: Dispatcher [employer] EDIan Fair, Junior Ramsey RN, MD MD ec2
--- NOTE | 2024-06-07 13:14 | EDPHYS ---
Physician Documentation [facility] Name: Rebecca Pineda Age: 63 yrs Sex: Female : 1960 Arrival Date: 06/07/2024 Time: 11:38 Bed 8 Private MD: ED Physician Junior Berrios HPI: 06/07 11:44 This 63 yrs old Black Female presents to ER via Unassigned with complaints of Chest ec2 Pain. 11:44 Patient arrives today for evaluation of left-sided chest pain as well as upper ec2 abdominal discomfort ongoing for 2 years however worsened over the past week with multiple episodes which were prompted evaluation today in conjunction with elevated blood pressures documented at home. Patient reports no exertional component, no shortness of breath, states that she is being monitored for high blood pressure. Reports that she takes propranolol for tremors.. Historical: - Allergies: 11:45 PENICILLINS; bp - Home Meds: 11:45 Propranolol Oral [Active]; bp - PSHx: 11:45 Tonsillectomy; bp - Immunization history:: Adult Immunizations up to date. - Infectious Disease History:: Denies. - Social history:: Smoking status: unknown. ROS: 11:44 Constitutional: as per hpi ec2 Exam: 11:44 Constitutional: GEN: NAD Head: atraumatic Eyes: EOMI Ears: External ears are ec2 normal. CV: regular rate LUNGS: no respiratory distress ABD: non-distended SKIN: no evidence of rashes MSK: no evidence of trauma Vital Signs: 11:44 BP 150 / 75; Pulse 55; Resp 16; Temp 98; Pulse Ox 98% ; bp 13:33 BP 143 / 67; Pulse 57; Resp 16; Temp 98; Pulse Ox 99% ; bp MDM: 11:42 Medical Screening Exam initiated ec2 11:44 Data reviewed: vital signs. ED course: Patient arrives today for evaluation of chest ec2 pain. Examination remarkable for well-appearing nontoxic individuals otherwise in no acute distress with a reassuring examination and reassuring hemodynamics. Will obtain lab work, EKG as well as chest x-ray. Differential diagnosis include processes such as reflux, gastritis, ACS, additionally considered other processes such as PE and dissection . 11:57 ED course: EKG independently reviewed and interpreted by me, shows normal sinus rhythm, ec2 rate of 49, no acute ST segment elevations, intervals are nonactionable. Further discussion with patient shows that she does have baseline bradycardia and rates in the 40s and 50s are typical for her.. 12:49 ED course: Metabolic profile, CBC, troponin as well as BNP are nonactionable. . ec2 06/07 11:42 Order name: Basic Metabolic Panel; Complete Time: 12:49 ec2 06/07 11:42 Order name: CBC with Diff; Complete Time: 12:49 ec2 06/07 11:42 Order name: NT PRO-BNP; Complete Time: 12:49 ec2 06/07 11:42 Order name: PT-INR; Complete Time: 12:49 ec2 06/07 11:42 Order name: Troponin HS; Complete Time: 12:49 ec2 06/07 11:42 Order name: XRAY Chest (1 view); Complete Time: 13:06 ec2 06/07 11:42 Order name: EKG; Complete Time: 11:43 ec2 06/07 11:42 Order name: Cardiac monitoring; Complete Time: 12:13 ec2 06/07 11:42 Order name: EKG - Nurse/Tech; Complete Time: 12:13 ec2 06/07 11:42 Order name: IV Saline Lock; Complete Time: 12:13 ec2 06/07 11:42 Order name: Labs collected and sent; Complete Time: 12:13 ec2 06/07 11:42 Order name: O2 Per Protocol; Complete Time: 11:47 ec2 06/07 11:42 Order name: O2 Sat Monitoring; Complete Time: 11:47 ec2 Administered Medications: 13:32 Not Given (Patient Refused): morphineor iv 4 mg IVP once over 4 mins bp 13:32 Not Given (Patient Refused): [id number] mg IVP once; dilute with 10 mL 0.9% NaCl; bp give over 2 minutes 13:32 Drug: Pantoprazole PO 40 mg PO once Route: PO; bp 13:32 Follow up: Response: No adverse reaction bp Disposition Summary: 06/07/24 13:13 Discharge Ordered Notes: Location: Home ec2 Condition: Stable ec2 Diagnosis - Chest pain, unspecified ec2 - Acute gastritis ec2 Followup: ec2 - With: Private Physician - When: - Reason: Recheck today's complaints Discharge Instructions: - Discharge Summary Sheet ec2 - Nonspecific Chest Pain, Adult, [id number] ec2 Forms: - Medication Reconciliation Form ec2 - Antibiotic Education ec2 - Prescription Opioid Use ec2 - Patient Portal Instructions ec2 - Leadership Thank You Letter ec2 Prescriptions: - Protonix 40 mg Oral Tablet - take 1 tablet ORAL route once daily; 30 tablet; Refills: 0, Product Selection ec2 Permitted Signatures: Dispatcher [employer] Ian Laura RN RN Junior Canales MD MD ec2 Corrections: (The following items were deleted from the chart) 11:43 11:43 BASIC METABOLIC PANEL+C.LAB.BRZ ordered. EDMS EDMS 11:43 11:43 CBC+H.LAB.BRZ ordered. EDMS EDMS 11:43 11:43 PROBNP+C.LAB.BRZ ordered. EDMS EDMS 11:43 11:43 PROTIME (+INR)+COAG.LAB.BRZ ordered. EDMS EDMS 11:43 11:43 Troponin High Sensitivity+C.LAB.BRZ ordered. EDMS EDMS
[2024-06-07] MEDS ORDERED: PANTOPRAZOLE 40MG TABLET PO ONE (13:27)
[2024-06-07 14:42] VITALS: TEMP 98
[2024-06-07 14:44] VITALS: BP 143/67; O2SAT 99
== END 2024-06-07 13:42 | disposition home or self-care (01) ==
LOC: ER 11:38
DX: K29.00 Acute gastritis without bleeding (principal)
CPT/HCPCS: 36415; 71045; 80048; 83880; 84484; 85025; 85610; 93005

== ENCOUNTER 2024-06-27 12:15 | Emergency (ER) | payer OTHER ==
[2024-06-27 13:40] LABS: Absolute Basophils 0.1 K/uL (0-0.5); Absolute Eosinophils 0.1 K/uL (0-0.5); Absolute Monocytes 0.5 K/uL (0.1-1.3); Absolute Neutrophil 5.1 K/uL (1.8-8.0); Basophils % 0.9 % (0-1.3); Eosinophils % 1.2 % (0-4.4); Hematocrit 40.1 % (36.0-45.0); Lymphocytes % 14.3 % (15.3-44.8); MCH 27.2 pg (27.0-35.0); MCHC 32.4 g/dL (32.0-36.0); MCV 83.9 fL (80-100); MPV 7.9 fL (7.6-11.3); Neutrophils % 75.6 % (41.7-73.7); Platelets 504 thou/uL (152-406); RBC Red Blood Cell Count 4.78 M/uL (3.86-4.86); Red Cell Distribution Width 14.1 % (12.1-15.2)
[2024-06-27 14:03] LABS: Anion Gap 5.4 mEq/L (5.0-15.0); Magnesium 2.4 mg/dL (1.6-2.4); Potassium 3.4 mEq/L (3.5-5.1); Troponin High Sensitivity 3.7 pg/mL (<58.9)
--- NOTE | 2024-06-27 14:11 | EDPHYS ---
Physician Documentation [facility] Name: Rebecca Pineda Age: 64 yrs Sex: Female : 1960 Arrival Date: 06/27/2024 Time: 12:15 Bed 7 Private MD: ED Physician Imelda Cuello HPI: 06/27 13:54 This 64 yrs old Black Female presents to ER via EMS with complaints of palpitations. jr8 13:54 The patient presents with a history of heart racing. Onset: The symptoms/episode jr8 began/occurred acutely, today. Duration: The patient or guardian reports a single episode, that is now resolved. Associated signs and symptoms: The patient has no apparent associated signs or symptoms. Severity of symptoms: At their worst the symptoms were mild in the emergency department the symptoms have resolved. The patient has experienced a previous episode, The patient has experienced similar episodes in the past, several times. 64-year-old female presents emergency room for elevated heart rate and blood pressure. Patient stated that she is currently taking propranolol as needed for that. Has seen by harness brusher and primary care without immediate diagnosis at this time. Stated that she had an episode today and was feeling uncomfortable, took her propranolol and now feeling better.. Historical: - Allergies: 12:28 PENICILLINS; rs5 - PMHx: 12:28 Anxiety; rs5 - PSHx: 12:28 Tonsillectomy; rs5 - Immunization history:: Adult Immunizations up to date. - Infectious Disease History:: Denies. - Social history:: Smoking status: Patient denies any tobacco usage or history of. ROS: 13:54 Eyes: Negative for injury, pain, redness, and discharge, ENT: Negative for injury, jr8 pain, and discharge, Neck: Negative for injury, pain, and swelling, Respiratory: Negative for shortness of breath, cough, wheezing, and pleuritic chest pain, Abdomen/GI: Negative for abdominal pain, nausea, vomiting, diarrhea, and constipation, Back: Negative for injury and pain, MS/Extremity: Negative for injury and deformity, Skin: Negative for injury, rash, and discoloration, Neuro: Negative for headache, weakness, numbness, tingling, and seizure, 13:54 Cardiovascular: Positive for palpitations, Exam: 13:54 Constitutional: This is a well developed, well nourished patient who is awake, alert, jr8 and in no acute distress. Eyes: Pupils equal round and reactive to light, extra-ocular motions intact. Lids and lashes normal. Conjunctiva and sclera are non-icteric and not injected. Cornea within normal limits. Periorbital areas with no swelling, redness, or edema. Cardiovascular: Regular rate and rhythm with a normal S1 and S2. No gallops, murmurs, or rubs. Normal PMI, no JVD. No pulse deficits. Respiratory: Lungs have equal breath sounds bilaterally, clear to auscultation and percussion. No rales, rhonchi or wheezes noted. No increased work of breathing, no retractions or nasal flaring. Abdomen/GI: Soft, non-tender, with normal bowel sounds. No distension or tympany. No guarding or rebound. No evidence of tenderness throughout. Back: No spinal tenderness. No costovertebral tenderness. Full range of motion. Skin: Warm, dry with normal turgor. Normal color with no rashes, no lesions, and no evidence of cellulitis. MS/ Extremity: Pulses equal, no cyanosis. Neurovascular intact. Full, normal range of motion. Neuro: Awake and alert, GCS 15, oriented to person, place, time, and situation. Motor strength 5/5 in all extremities. Sensory grossly intact. 13:54 ECG was reviewed by the Attending Physician. Vital Signs: 12:26 BP 127 / 79; Pulse 87; Resp 17; Temp 98(O); Pulse Ox 99% ; rs5 13:01 BP 122 / 71; Pulse 79; Resp 17; Pulse Ox 99% on R/A; rs5 14:18 BP 125 / 77; Pulse 74; Resp 17; Pulse Ox 99% on R/A; rs5 MDM: 12:47 Medical Screening Exam initiated jr8 13:54 Differential diagnosis: arrythmia, dehydration, stress disorder. Data reviewed: vital 8 signs, nurses notes, lab test result(s), EKG. Counseling: I had a detailed discussion with the patient and/or guardian regarding the historical points, exam findings, and any diagnostic results supporting the discharge/admit diagnosis, lab results, the need for outpatient follow up, a family practitioner, to return to the emergency department if symptoms worsen or persist or if there are any questions or concerns that arise at home. Response to treatment: the patient's symptoms have resolved after treatment. 14:09 ED course: Patient remains hemodynamically stable and without arrhythmia or significant jr8 hypertension. Labs stable with no acute findings on them or EKG. Recommended that she continue to use her propranolol as needed and to follow-up with her harness brusher family [facility] and if she were to have acute change or worsening come back to the emergency room for reevaluation. Patient understood and good plan at this time.. 06/27 12:55 Order name: Basic Metabolic Panel; Complete Time: 14: jr8 06/27 12:55 Order name: CBC with Diff; Complete Time: 13:57 jr8 06/27 12:55 Order name: NT PRO-BNP; Complete Time: 14: jr8 06/27 12:55 Order name: Troponin HS; Complete Time: 14: jr8 06/27 12:55 Order name: Magnesium; Complete Time: 14: 8 06/27 12:55 Order name: Cardiac monitoring; Complete Time: 13:33 jr8 06/27 12:55 Order name: EKG - Nurse/Tech; Complete Time: 13:33 jr8 06/27 12:55 Order name: IV Saline Lock; Complete Time: 13:33 jr8 06/27 12:55 Order name: Labs collected and sent; Complete Time: 13: jr8 06/27 12:55 Order name: O2 Per Protocol; Complete Time: 13:33 jr8 06/27 12:55 Order name: O2 Sat Monitoring; Complete Time: 13:33 jr8 EC:54 Rate is 63 beats/min. Rhythm is regular, Sinus Rhythm. QRS [place] is Normal. NM interval jr8 is normal at 124 msec. QRS interval is normal at 80 msec. QT interval is normal. No Q waves. T waves are Normal. No ST changes noted. Clinical impression: Normal ECG. Interpreted by me. Reviewed by me. Administered Medications: No medications were administered Disposition Summary: 06/27/24 14:10 Discharge Ordered Notes: Location: Home jr8 Problem: new jr8 Symptoms: have improved jr8 Condition: Stable jr8 Diagnosis - Palpitations jr8 Followup: jr8 - With: Private Physician - When: 2 - 3 days - Reason: Recheck today's complaints, Continuance of care, Re-evaluation by your physician Discharge Instructions: - Discharge Summary Sheet jr8 - Palpitations jr8 Forms: - Medication Reconciliation Form jr8 - Antibiotic Education jr8 - Prescription Opioid Use jr8 - Patient Portal Instructions jr8 - Leadership Thank You Letter jr8 Signatures: Dispatcher [employer] EDChris Cerda PA PA jr8 John Baig, RN RN rs5 Corrections: (The following items were deleted from the chart) 12:55 12:55 BASIC METABOLIC PANEL+C.LAB.BRZ ordered. EDMS EDMS 12:55 12:55 CBC+H.LAB.BRZ ordered. EDMS EDMS 12:55 12:55 PROBNP+C.LAB.BRZ ordered. EDMS EDMS 12:55 12:55 Troponin High Sensitivity+C.LAB.BRZ ordered. EDMS EDMS 12:55 12:55 MAGNESIUM+C.LAB.BRZ ordered. EDMS EDMS
--- NOTE | 2024-06-27 14:11 | ER ---
Nurse's Notes [facility] Name: Rebecca Pineda Age: 64 yrs Sex: Female : 1960 Arrival Date: 06/27/2024 Time: 12:15 Bed 7 Private MD: Diagnosis: Palpitations Presentation: 06/27 12:26 Chief complaint: EMS states: Pt toned out EMS for anxiety and palpitations, denies rs5 chest pain or SOB. Coronavirus screen: At this time, the client does not indicate any symptoms associated with coronavirus-19. Ebola Screen: No symptoms or risks identified at this time. Initial Sepsis Screen: Does the patient meet any 2 criteria? No. Patient's initial sepsis screen is negative. Does the patient have a suspected source of infection? No. Patient's initial sepsis screen is negative. Initial Sepsis Screen: Does the patient meet any 2 criteria?. Risk Assessment: Do you want to hurt yourself or someone else? Patient reports no desire to harm self or others. Onset of symptoms was June 27, 2024. 12:26 Method Of Arrival: EMS: [facility] rs5 12:26 Acuity: PADMAJA 4 rs5 Historical: - Allergies: 12:28 PENICILLINS; rs5 - PMHx: 12:28 Anxiety; rs5 - PSHx: 12:28 Tonsillectomy; rs5 - Immunization history:: Adult Immunizations up to date. - Infectious Disease History:: Denies. - Social history:: Smoking status: Patient denies any tobacco usage or history of. Screenin:26 [facility] ED Fall Risk Assessment (Adult) History of falling in the last 3 months, rs5 including since admission No falls in past 3 months (0 pts) Confusion or Disorientation No (0 pts) Intoxicated or Sedated No (0 pts) Impaired Gait No (0 pts) Mobility Assist Device Used No (0 pt) Altered Elimination No (0 pt) Score/Fall Risk Level 0 - 2 = Low Risk Oriented to surroundings, Maintained a safe environment. 12:26 Abuse screen: Denies threats or abuse. Nutritional screening: No deficits noted. rs5 Tuberculosis screening: No symptoms or risk factors identified. Assessment: 12:26 General: Appears in no apparent distress. uncomfortable, Behavior is cooperative, rs5 anxious. Pain: Denies pain. Neuro: Level of Consciousness is awake, alert, obeys commands, Oriented to person, place, time, situation. Cardiovascular: Patient's skin is warm and dry. Respiratory: Airway is patent Respiratory effort is even, unlabored, Respiratory pattern is regular, symmetrical. GI: Abdomen is round non-distended, Abd is soft and non tender X 4 quads. : No signs and/or symptoms were reported regarding the genitourinary system. EENT: No signs and/or symptoms were reported regarding the EENT system. Derm: Skin is intact, Skin is dry, Skin is normal. Musculoskeletal: Range of motion: intact in all extremities. 13:37 Reassessment: Patient and/or family updated on plan of care and expected duration. Pain rs5 level reassessed. Patient is alert, oriented x 3, equal unlabored respirations, skin warm/dry/pink. 14:18 Reassessment: Patient and/or family updated on plan of care and expected duration. Pain rs5 level reassessed. Patient is alert, oriented x 3, equal unlabored respirations, skin warm/dry/pink. Vital Signs: 12:26 BP 127 / 79; Pulse 87; Resp 17; Temp 98(O); Pulse Ox 99% ; rs5 13:01 BP 122 / 71; Pulse 79; Resp 17; Pulse Ox 99% on R/A; rs5 14:18 BP 125 / 77; Pulse 74; Resp 17; Pulse Ox 99% on R/A; rs5 ED Course: 12:25 Patient arrived in ED. iw 12:26 John Baig, SONA is Primary Nurse. rs5 12:28 Triage completed. rs5 12:29 Chris Robert PA is PHCP. jr8 12:29 Imelda Cuello MD is Attending Physician. jr8 12:30 Patient has correct armband on for positive identification. Placed in gown. Bed in low rs5 position. Call light in reach. Side rails up X2. 12:35 Inserted saline lock: 20 gauge in left antecubital area, using aseptic technique. Blood rs5 collected. Flushed with 10 mL NS. 12:35 No provider procedures requiring assistance completed. rs5 14:20 Provided Education on: discharge instrutions . rs5 14:25 IV discontinued, intact, bleeding controlled, No redness/swelling at site. Pressure rs5 dressing applied. Administered Medications: No medications were administered Medication: 14:19 VIS not applicable for this client. rs5 Outcome: 14:10 Discharge ordered by . garfield 14:25 Discharged to home ambulatory, rs5 14:25 Condition: stable rs5 14:25 Discharge instructions given to patient, family, Instructed on discharge instructions, follow up and referral plans. Demonstrated understanding of instructions, follow-up care, 14:27 Patient left the ED. rs5 Signatures: Manjula Patterson RN RN Chris Ho PA PA jr8 Sotelo, Ricky, RN RN rs5 Corrections: (The following items were deleted from the chart) 14: 12:26 Chief complaint: EMS states: Pt toned out EMS for anxiety, denies chest pain or rs5 SOB rs5 14:19 14:18 BP 122 / 71; Pulse 79bpm; Resp 17bpm; Pulse Ox 99% RA; rs5 rs5
[2024-06-27 15:11] VITALS: TEMP 98; O2SAT 99
[2024-06-27 15:13] VITALS: BP 125/77
--- NOTE | 2024-06-29 12:24 | EKG ---
Test Date: 2024-06-27 Test Time: 14:27:59 [employer] MEASUREMENT RESULTS: Intervals: Rate: 63 NM: 124 QRSD: 80 QT: 388 QTc: 397 [place]: P: 67 NM: 124 QRS: 10 T: 54 INTERPRETIVE STATEMENTS: Normal sinus rhythm with sinus arrhythmia Normal ECG Compared to ECG 06/07/2024 11:55:05 Sinus bradycardia no longer present Electronically Signed On 06-29-24 12:18:22 CINEMA OR [employer]ATRE MANAGER by Kishore Carmona
== END 2024-06-27 14:27 | disposition home or self-care (01) ==
LOC: ER 12:15
DX: R00.2 Palpitations (principal); F41.9 Anxiety disorder, unspecified
CPT/HCPCS: 36415; 80048; 83735; 83880; 84484; 85025; 93005; 99284

== ENCOUNTER 2024-07-27 09:32 | Emergency (ER) | payer OTHER ==
--- NOTE | 2024-07-27 11:41 | ER ---
Nurse's Notes [facility] Name: Rebecca Pineda Age: 64 yrs Sex: Female : 1960 Arrival Date: 07/27/2024 Time: 09:32 Bed 22 Private MD: Diagnosis: Presentation: 07/27 10:11 Chief complaint: Patient states: "my heart is racing and my blood pressure goes high aa5 since around February". Pt states "my blood pressure was about 169/79 before the ambulance picked me up". Coronavirus screen: At this time, the client does not indicate any symptoms associated with coronavirus-19. Ebola Screen: Patient denies travel to an Ebola-affected area in the 21 days before illness onset. Initial Sepsis Screen: Does the patient meet any 2 criteria? No. Patient's initial sepsis screen is negative. Does the patient have a suspected source of infection? No. Patient's initial sepsis screen is negative. Risk Assessment: Do you want to hurt yourself or someone else? Patient reports no desire to harm self or others. Onset of symptoms was February 2024. 10:11 Method Of Arrival: EMS: [facility] aa5 10:11 Acuity: PADMAJA 3 aa5 10:11 Care prior to arrival: IV initiated. 20 GA, in the left antecubital area. aa5 Historical: - Allergies: 10:11 PENICILLINS; aa5 - Home Meds: 10:13 Propranolol Oral PRN for palpitations [Active]; aa5 - PMHx: 10:11 Anxiety; aa5 - PSHx: 10:11 Tonsillectomy; aa5 10:13 Ovarian cyst sx; aa5 - Immunization history:: Adult Immunizations unknown. - Infectious Disease History:: Denies. - Social history:: Smoking status: Patient denies any tobacco usage or history of. Vital Signs: 10:11 BP 131 / 48; Pulse 50; Resp 16 S; Pulse Ox 100% on R/A; Weight 62.6 kg (R); Height 5 aa5 ft. 4 in. (R); 10:11 Body Mass Index 23.69 (62.60 kg, 162.56 cm) aa5 ED Course: 09:33 Patient arrived in ED. mg5 10:11 Arm band placed on. aa5 10:13 Triage completed. aa5 10:16 EKG completed in triage. Results shown to . aa5 11:34 Avelino Hameed MD is Attending Physician. bo1 11:39 Patient's name was called from ER lobby. No response. Unable to locate patient. Will kb3 disposition as left without being seen by a provider. Administered Medications: No medications were administered Outcome: 11:40 Eloped from waiting room, before seeing physician Time discovered patient gone: kb3 July 27, 2024 at 11:30 11:40 Patient left the ED. kb3 Signatures: Cristina Esteban, RN RN aa5 Ana Pascal RN RN aramis3 Meg Del Rio mg5 Avelino Hameed MD MD bo1
[2024-07-27 11:44] VITALS: BP 131/48; O2SAT 100
== END 2024-07-27 11:40 | disposition left against medical advice (07) ==
LOC: ER 09:32
DX: Z53.21 Procedure and treatment not carried out due to patient leaving prior to being seen by health care provider (principal)
CPT/HCPCS: 93005; 99283

== ENCOUNTER 2024-08-11 23:05 | Emergency (ER) | payer OTHER ==
[2024-08-11 23:46] LABS: Absolute Eosinophils 0.1 K/uL (0-0.5); Absolute Lymphocytes (CBC) 1.6 K/uL (0.7-4.9); Absolute Monocytes 0.4 K/uL (0.1-1.3); Absolute Neutrophil 2.9 K/uL (1.8-8.0); Basophils % 0.8 % (0-1.3); Eosinophils % 1.8 % (0-4.4); Hematocrit 39.7 % (36.0-45.0); Hemoglobin 12.9 g/dL (12.0-15.0); Lymphocytes % 32.3 % (15.3-44.8); MCH 26.9 pg (27.0-35.0); MCHC 32.5 g/dL (32.0-36.0); MCV 82.8 fL (80-100); MPV 7.7 fL (7.6-11.3); Monocytes % 8.3 % (3.3-12.3); Neutrophils % 56.8 % (41.7-73.7); Nucleated Red Blood Cells % 0.2 % (0-0); Platelets 495 thou/uL (152-406); Red Cell Distribution Width 14.8 % (12.1-15.2)
[2024-08-11 23:53] LABS: PT Prothrombin Time 11.6 SECONDS (9.4-12.5); Protime INR 1.04
[2024-08-12 00:06] LABS: ALT/SGPT 16 U/L (13-56); AST/SGOT 19 U/L (15-37); Albumin 3.2 g/dL (3.4-5.0); Albumin/Globulin Ratio 0.8 (1.1-1.8); Alkaline Phosphatase 60 U/L (45-117); Anion Gap 7.3 mEq/L (5.0-15.0); BUN Blood Urea Nitrogen 7 mg/dL (7-18); Bicarbonate 29 mEq/L (21-32); Bilirubin Total 0.3 mg/dL (0.2-1.0); Globulin 4.1 g/dL (2.3-3.5); Glomerular Filtration Rate 78 ml/min (=/>90); Glucose Level 95 mg/dL (74-106); Magnesium 2.1 mg/dL (1.6-2.4); NT PRO-BNP 100 pg/mL (<125); Potassium 3.3 mEq/L (3.5-5.1); Protein, Total 7.3 g/dL (6.4-8.2); Sodium Level 139 mEq/L (136-145); Troponin High Sensitivity 3.4 pg/mL (<58.9)
[2024-08-12 00:11] LABS: Bilirubin Direct < 0.2 mg/dL (0-0.2); Bilirubin Indirect, Calculated 0.1 mg/dL (0.2-0.8)
--- NOTE | 2024-08-12 02:08 | RAD REPORT ---
PROCEDURE: XR Chest, 1 View CLINICAL INDICATION: The patient is 64 years old and is Female; Chest pain. TECHNIQUE: Frontal view of the chest. COMPARISON: XR Chest 06/07/2024. FINDINGS: LUNGS: No discrete focal consolidation. PLEURAL SPACE: No appreciable pleural effusion or pneumothorax. MEDIASTINUM: Normal cardiomediastinal contours, allowing for technique and positioning. BONES/JOINTS: No acute osseous abnormality. VASCULATURE: Calcified atherosclerosis of the thoracic aorta. IMPRESSION: No acute cardiopulmonary abnormality. Electronically signed by: Chris Gaines MD 08/12/2024 01:49 AM [facility] Due to temporary technical issues with the PACS/momondo reporting system, reports are being delfin d by the in-house radiologist without review as a courtesy to ensure prompt reporting the interpreting radiologist is fully responsible for the content of the report. Transcribed Date/Time: 08/12/2024 2:07 AM
--- NOTE | 2024-08-12 03:42 | EDPHYS ---
Physician Documentation [facility] Name: Rebecca Pineda Age: 64 yrs Sex: Female : 1960 Arrival Date: 08/11/2024 Time: 23:05 Bed 5 Private MD: ED Physician Rigo Medina HPI: 08/12 03:38 This 64 yrs old Black Female presents to ER via EMS with complaints of Palpitations. sp4 20:58 EKG at 2323. 64-year-old female presents with complaint of acute onset of palpitations. sp4 Patient presents with EMS.. Patient states she takes propranolol 10 mg p.o. as needed palpitations.. Historical: - Allergies: 08/11 23:15 PENICILLINS; kd3 - Home Meds: 23:15 Propranolol Oral PRN for palpitations [Active]; kd3 - PMHx: 23:15 Anxiety; kd3 - PSHx: 23:15 ovarian cyst SX; Tonsillectomy; kd3 - Immunization history:: Adult Immunizations up to date. - Infectious Disease History:: Denies. - Social history:: Smoking status: unknown. - Family history:: not pertinent. ROS: 08/12 20:58 Constitutional: Negative for fever, chills, and weight loss, positive for palpitations sp4 All other systems are negative, Exam: 20:58 Constitutional: This is a well developed, well nourished patient who is awake, alert, sp4 and in no acute distress. Head/Face: Normocephalic, atraumatic. Eyes: Pupils equal round and reactive to light, extra-ocular motions intact. Lids and lashes normal. Conjunctiva and sclera are not injected. Cornea within normal limits. Periorbital areas with no swelling, redness, or edema. ENT: Nares patent. No nasal discharge, no septal abnormalities noted. Tympanic membranes are normal and external auditory canals are clear. Oropharynx with no redness, swelling, or masses, exudates, or evidence of obstruction, uvula midline. Mucous membranes moist. Neck: Trachea midline, no thyromegaly or masses palpated, and no cervical lymphadenopathy. Supple, full range of motion without nuchal rigidity, or vertebral point tenderness. Chest/axilla: Normal chest wall appearance and motion. Nontender with no deformity. No lesions are appreciated. Cardiovascular: Regular rate and rhythm with a normal S1 and S2. No gallops, murmurs, or rubs. Normal PMI, no JVD. No pulse deficits. Respiratory: Lungs have equal breath sounds bilaterally, clear to auscultation and percussion. No rales, rhonchi or wheezes noted. No increased work of breathing, no retractions or nasal flaring. Abdomen/GI: Soft, with normal bowel sounds. No distension or tympany. No guarding or rebound. No evidence of tenderness throughout. Back: No spinal tenderness. No costovertebral tenderness. Skin: Warm, dry with normal turgor. Normal color with no rashes, no lesions, and no evidence of cellulitis. MS/ Extremity: Pulses equal, no cyanosis. Neurovascular intact. Full, normal range of motion. Neuro: Awake and alert, GCS 15, oriented to person, place, time, and situation. Cranial nerves II-XII grossly intact. Motor strength 5/5 in all extremities. Sensory grossly intact. Psych: Awake, alert, with orientation to person, place and time. Behavior, mood, and affect are within normal limits 20:58 ECG was reviewed by the Attending Physician. EKG 2323 normal sinus rhythm rate 61 Vital Signs: 08/11 23:17 BP 142 / 73; Pulse 80; Resp 16; Pulse Ox 100% ; Weight 61.23 kg; Height 5 ft. 4 in. ; kd3 Pain 0/10; 08/12 00:00 BP 117 / 56; Pulse 52; Resp 16; Pulse Ox 100% on R/A; dd2 01:00 BP 124 / 51; Pulse 52; Resp 16; Pulse Ox 100% on R/A; dd2 02:00 BP 118 / 56; Pulse 48; Resp 16; Pulse Ox 100% on R/A; dd2 03:45 BP 110 / 49; Pulse 50; Resp 16; Temp 98.1; Pulse Ox 98% on R/A; dd2 08/11 23:17 Body Mass Index 23.17 (61.23 kg, 162.56 cm) kd3 08/11 23:17 Pain Scale: Adult kd3 Henny Coma Score: 00:02 Eye Response: spontaneous(4). Motor Response: obeys commands(6). Verbal Response: dd2 oriented(5). Total: 15. MDM: 08/11 23:14 Medical Screening Exam initiated sp4 23:23 Differential diagnosis: arrythmia, dehydration, stress disorder. Data reviewed: vital sp4 signs, nurses notes, old medical records, lab test result(s), EKG. ED course: PROCEDURE: XR Chest, 1 View CLINICAL INDICATION: The patient is 64 years old and is Female; Chest pain. TECHNIQUE: Frontal view of the chest. COMPARISON: XR Chest 06/07/2024. FINDINGS: LUNGS: No discrete focal consolidation. PLEURAL SPACE: No appreciable pleural effusion or pneumothorax. MEDIASTINUM: Normal cardiomediastinal contours, allowing for technique and positioning. BONES/JOINTS: No acute osseous abnormality. VASCULATURE: Calcified atherosclerosis of the thoracic aorta. IMPRESSION: No acute cardiopulmonary abnormality. . 08/12 21:04 Scoring Tools HEART Score: History: Slightly Suspicious (0) ECG: Normal (0) Age: > 45 sp4 and < 65 years (1) Risk Factors: 1 or 2 Risk factors (1) Troponin: < or = 1 x Normal limit (0) Total Score = 2. ED course: Second troponin is negative. Patient stable for discharge home.. 08/11 23:14 Order name: Basic Metabolic Panel; Complete Time: 02:08 4 08/11 23:14 Order name: CBC with Diff; Complete Time: 02:08 4 08/11 23:14 Order name: LFT's; Complete Time: 02:08 sp4 08/11 23:14 Order name: Magnesium; Complete Time: 02:08 4 08/11 23:14 Order name: NT PRO-BNP; Complete Time: 02:08 4 08/11 23:14 Order name: PT-INR; Complete Time: 02:08 4 08/11 23:14 Order name: Troponin HS; Complete Time: 02:08 4 08/12 02:07 Order name: Troponin High Sensitivity; Complete Time: 03:38 sp4 08/11 23:14 Order name: XRAY Chest (1 view) 4 08/11 23:14 Order name: EKG; Complete Time: 23:15 4 08/11 23:14 Order name: Cardiac monitoring; Complete Time: 23:28 4 08/11 23:14 Order name: EKG - Nurse/Tech; Complete Time: 23:28 4 08/11 23:14 Order name: IV Saline Lock; Complete Time: 23:49 sp4 08/11 23:14 Order name: Labs collected and sent; Complete Time: 23:49 sp4 08/11 23:14 Order name: O2 Per Protocol; Complete Time: 23:28 sp4 08/11 23:14 Order name: O2 Sat Monitoring; Complete Time: 23:28 sp4 08/12 02:07 Order name: EKG - Nurse/Tech; Complete Time: 02:41 sp4 EC/18 23:23 Rate is 61 beats/min. Rhythm is regular, Normal Sinus Rhythm. QRS [place] is Normal. LA sp4 interval is normal. QRS interval is normal. QT interval is normal. No Q waves. T waves are Normal. No ST changes noted. Clinical impression: Normal ECG. Interpreted by me. Reviewed by me. Administered Medications: No medications were administered Disposition: 08/12 21:05 Chart complete. sp4 Disposition Summary: 08/12/24 03:41 Discharge Ordered Problem: new sp4 Symptoms: have improved sp4 Condition: Stable sp4 Diagnosis - Palpitations sp4 - Chest discomfort , Non cardiac chest pain sp4 Followup: sp4 - With: Private Physician - When: 7 - 10 days - Reason: Recheck today's complaints Discharge Instructions: - Discharge Summary Sheet sp4 - Palpitations sp4 Forms: - Leadership Thank You Letter sp4 Signatures: Dispatcher [employer] Purvi Brock RN RN kd3 Rigo Medina MD MD sp4
--- NOTE | 2024-08-12 03:42 | ER ---
Nurse's Notes [facility] Name: Rebecca Pineda Age: 64 yrs Sex: Female : 1960 Arrival Date: 08/11/2024 Time: 23:05 Bed 5 Private MD: Diagnosis: Palpitations;Chest discomfort , Non cardiac chest pain Presentation: 08/11 23:12 Chief complaint: EMS states: Pt presents to the ED from home complaining of chest kd3 tightness, palpitations and tremors. PT has been seen in this ER prior for the same reasons and takes propranolol at home. PT states that her PCP told her to come to the ED is her HR gets above 60 bpm since her normal is in the 40's. On scene the patient complained of CP and nausea but declines Zofran. PT was administered 324 aspirin and denies CP currently. PT has an ECHO scheduled for Friday. Coronavirus screen: Vaccine status: Patient reports receiving the 2nd dose of the covid vaccine. Ebola Screen: No symptoms or risks identified at this time. Initial Sepsis Screen: Does the patient meet any 2 criteria? No. Patient's initial sepsis screen is negative. Does the patient have a suspected source of infection? No. Patient's initial sepsis screen is negative. Risk Assessment: Do you want to hurt yourself or someone else? Patient reports no desire to harm self or others. Onset of symptoms was August 11, 2024. 23:12 Method Of Arrival: EMS: [facility] kd3 23:12 Acuity: PADMAJA 3 kd3 Triage Assessment: 23:15 General: Appears in no apparent distress. Behavior is cooperative, anxious. Pain: kd3 Denies pain. 23:16 Neuro: Level of Consciousness is awake, alert, obeys commands, Oriented to person, kd3 place, time, situation. Cardiovascular: Patient's skin is warm and dry. Respiratory: Airway is patent Trachea midline Respiratory effort is even, unlabored, Respiratory pattern is regular, symmetrical. Historical: - Allergies: 23:15 PENICILLINS; kd3 - Home Meds: 23:15 Propranolol Oral PRN for palpitations [Active]; kd3 - PMHx: 23:15 Anxiety; kd3 - PSHx: 23:15 ovarian cyst SX; Tonsillectomy; kd3 - Immunization history:: Adult Immunizations up to date. - Infectious Disease History:: Denies. - Social history:: Smoking status: unknown. - Family history:: not pertinent. Screenin/19 00:02 [facility] ED Fall Risk Assessment (Adult) History of falling in the last 3 months, dd2 including since admission No falls in past 3 months (0 pts) Confusion or Disorientation No (0 pts) Intoxicated or Sedated No (0 pts) Impaired Gait No (0 pts) Mobility Assist Device Used No (0 pt) Altered Elimination No (0 pt) Score/Fall Risk Level 0 - 2 = Low Risk Oriented to surroundings, Maintained a safe environment, Educated pt \T\ family on fall prevention, incl call for assistance when getting out of bed, Assessed \T\ reinforced patient's understanding of fall precautions, Hourly rounding (assess needs \T\ fall precautionary measures) done. Abuse screen: Denies threats or abuse. Nutritional screening: No deficits noted. Tuberculosis screening: No symptoms or risk factors identified. Assessment: 08/11 23:42 General: Appears in no apparent distress. Behavior is cooperative, appropriate for age, dd2 anxious. Pain: Complains of pain in chest Pain does not radiate. Neuro: Level of Consciousness is awake, alert, obeys commands, Oriented to person, place, time, situation, Appropriate for age. Cardiovascular: Reports chest pain, palpitations, Heart tones S1 S2 present Patient's skin is warm and dry. Rhythm is sinus bradycardia. Respiratory: Reports shortness of breath Airway is patent Respiratory effort is even, unlabored, Respiratory pattern is regular, symmetrical, Breath sounds are clear bilaterally. GI: No deficits noted. Abdomen is non-distended, Bowel sounds present X 4 quads. Abd is soft and non tender X 4 quads. : No deficits noted. No signs and/or symptoms were reported regarding the genitourinary system. EENT: No deficits noted. No signs and/or symptoms were reported regarding the EENT system. Derm: No deficits noted. No signs and/or symptoms reported regarding the dermatologic system. Musculoskeletal: No deficits noted. No signs and/or symptoms reported regarding the musculoskeletal system. Circulation, motion, and sensation intact. Range of motion:. Vital Signs: 23:17 BP 142 / 73; Pulse 80; Resp 16; Pulse Ox 100% ; Weight 61.23 kg; Height 5 ft. 4 in. ; kd3 Pain 0/10; 12/19 00:00 BP 117 / 56; Pulse 52; Resp 16; Pulse Ox 100% on R/A; dd2 01:00 BP 124 / 51; Pulse 52; Resp 16; Pulse Ox 100% on R/A; dd2 02:00 BP 118 / 56; Pulse 48; Resp 16; Pulse Ox 100% on R/A; dd2 03:45 BP 110 / 49; Pulse 50; Resp 16; Temp 98.1; Pulse Ox 98% on R/A; dd2 08/11 23:17 Body Mass Index 23.17 (61.23 kg, 162.56 cm) kd3 08/11 23:17 Pain Scale: Adult kd3 Henny Coma Score: 00:02 Eye Response: spontaneous(4). Motor Response: obeys commands(6). Verbal Response: dd2 oriented(5). Total: 15. ED Course: 08/11 23:10 Patient arrived in ED. dd2 23:12 Purvi James, SONA is Primary Nurse. kd3 23:14 Rigo Medina MD is Attending Physician. sp4 23:15 Triage completed. kd3 23:16 Arm band placed on right wrist. kd3 23:29 EKG done, by ED staff, reviewed by Rigo Medina MD. ay 23:43 X-ray completed. Portable x-ray completed in exam room. Patient tolerated procedure mh1 well. 23:45 XRAY Chest (1 view) In Process Unspecified. EDMS 23:45 Inserted saline lock: 20 gauge in left antecubital area, using aseptic technique. Blood kd3 collected. Flushed with 10 mL NS. 23:49 Basic Metabolic Panel Sent. kd3 23:49 CBC with Diff Sent. kd3 23:49 LFT's Sent. kd3 23:49 Magnesium Sent. kd3 23:49 NT PRO-BNP Sent. kd3 23:49 PT-INR Sent. kd3 23:49 Troponin HS Sent. kd3 08/12 00:02 Door closed. Noise minimized. Warm blanket given. Pillow given. Verbal reassurance dd2 given. 02:41 Patient has correct armband on for positive identification. Bed in low position. Call dd2 light in reach. Side rails up X2. Client placed on continuous cardiac and pulse oximetry monitoring. NIBP monitoring applied. awake overnight monitor on. 02:41 No provider procedures requiring assistance completed. EKG done, by ED staff, reviewed dd2 by Rigo Medina MD. 03:54 IV discontinued, intact, bleeding controlled, No redness/swelling at site. Pressure ay dressing applied. Administered Medications: No medications were administered Medication: 02:43 VIS not applicable for this client. dd2 Outcome: 03:41 Discharge ordered by . spDenisse 03:54 Discharged to home ambulatory, ay 03:54 Condition: stable 03:54 Discharge instructions given to patient, Instructed on follow up and referral plans. Demonstrated understanding of instructions, follow-up care, 03:56 Patient left the ED. ay Signatures: Dispatcher [employer] EDMS Shoshana Kelly 1 Purvi James, RN RN [email or web address] Rigo Medina MD MD sp4 MALU SINGH RN RN dd2 Viviana Bailey RN RN ay
[2024-08-12 04:24] VITALS: BP 110/49; TEMP 98.1; O2SAT 98
--- NOTE | 2024-08-13 15:43 | EKG ---
Test Date: 2024-08-12 Test Time: 02:20:37 Solution Advisor: CORRINE MEASUREMENT RESULTS: Intervals: Rate: 48 CO: 128 QRSD: 76 QT: 438 QTc: 391 [place]: P: 71 CO: 128 QRS: 11 T: 37 INTERPRETIVE STATEMENTS: Sinus bradycardia Low voltage QRS Cannot rule out Anterior infarct, age undetermined Abnormal ECG Compared to ECG 08/11/2024 23:23:28 Low QRS voltage now present Sinus rhythm no longer present Myocardial infarct finding still present Electronically Signed On 08-13-24 15:42:01 SUPERVISOR OPENING [employer] PICKING by Kishore Carmona
--- NOTE | 2024-08-13 15:43 | EKG ---
Test Date: 2024-08-11 Test Time: 23:23:28 Department Of Mathematics Chair: CORRINE MEASUREMENT RESULTS: Intervals: Rate: 61 OK: 128 QRSD: 78 QT: 396 QTc: 398 [place]: P: 66 OK: 128 QRS: 12 T: 33 INTERPRETIVE STATEMENTS: Normal sinus rhythm Cannot rule out Anterior infarct, age undetermined Abnormal ECG Compared to ECG 07/27/2024 10:17:10 Sinus bradycardia no longer present Sinus arrhythmia no longer present Myocardial infarct finding still present Electronically Signed On 08-13-24 15:42:05 DRIVER WHEELCHAIR by Kishore Carmona
== END 2024-08-12 03:56 | disposition home or self-care (01) ==
LOC: ER 23:05
DX: R00.2 Palpitations (principal); R07.89 Other chest pain; Z88.0 Allergy status to penicillin
CPT/HCPCS: 36415; 71045; 80048; 80076; 83735; 83880; 84484; 85025; 85610; 93005; 99285